=== PATIENT | female | born 1990 | race Caucasian/White ===

== ENCOUNTER 2016-07-11 16:22 | Emergency (ER) | payer BC ==
[2016-07-11 16:33] VITALS: BP 115/65
--- NOTE | 2016-07-11 17:35 | EDM.PDOC ---
ED HPI RENAL/ - General Chief Complaint: Genitourinary Problem Stated Complaint: 8 WEEKS PREG AND PAINFUL URINATION Time Seen by Provider: 07/11/16 16:45 Source of Information: Reports: Patient History Limitations: Reports: No limitations - History of Present Illness INITIAL COMMENTS - FREE TEXT/NARRATIVE: 25-year-old female presents for evaluation and treatment of urinary tract infection symptoms. Patient reports that her symptoms started today. Current symptoms include dysuria and increased urinary frequency. She took 2 Azo prior to arrival in the ER. She denies any fevers, chills, hematuria, nausea or vomiting. Patient is approximately 8 weeks . She is a . She states she has not had any pelvic cramping or any vaginal bleeding. Last menstrual period was May 14. Plans on seeing Dr. Willoughby but has not seen her as of yet. Patient is currently on amoxicillin for a sinus infection. She has been on this for the last 4 days and has 3 days left of her 7 day course. - Related Data Allergies/ADRs: Allergies Allergy/AdvReac Type Severity Reaction Status Date / Time No Known Allergies Allergy Verified 07/11/16 16:33 Home Meds: Home Meds Amoxicillin 1 dose PO BID 07/11/16 [History] Cephalexin 500 mg PO TID #21 tablet 07/11/16 [Rx] Past Medical History HEENT History: Reports: Impaired vision Cardiovascular History: Reports: None Respiratory History: Reports: None Gastrointestinal History: Reports: Inflammatory bowel disease Genitourinary History: Reports: Other (see below) Other Genitourinary History: dysuria [employer] History: Reports: Musculoskeletal History: Reports: Other (see below) Other Musculoskeletal History: knee pain, meniscus tear Neurological History: Reports: None Psychiatric History: Reports: Anxiety, Depression Endocrine/Metabolic History: Reports: None Hematologic History: Reports: None Immunologic History: Reports: None Oncologic (Cancer) History: Reports: None Dermatologic History: Reports: None - Past Surgical History Head Surgeries/Procedures: Reports: None HEENT Surgical History: Reports: Oral surgery, Tonsillectomy GI Surgical History: Reports: Colonoscopy, EGD Musculoskeletal Surgical History: Reports: Arthroscopic knee Social & Family History - Family History Family Medical History: Noncontributory - Tobacco Use Smoking Status *Q: Never Smoker Second Hand Smoke Exposure: No - Caffeine Use Caffeine Use: Reports: None - Alcohol Use Days Per Week of Alcohol Use: 1 (or less) - Recreational Drug Use Recreational Drug Use: No Drug Use in Last 12 Months: No ED ROS GENERAL - Review of Systems Review Of Systems: See Below Constitutional: Denies: fever GI/Abdominal: Denies: Abdominal pain, Nausea, Vomiting : Reports: dysuria, frequency, other (denies any vaginal bleeding or pelvic cramping). Denies: hematuria ED EXAM, RENAL/ - Physical Exam Exam: See Below Exam Limited By: No limitations General Appearance: alert, WD/WN, no apparent distress Respiratory/Chest: no respiratory distress, lungs clear, normal breath sounds Cardiovascular: normal peripheral pulses, regular rate, rhythm, no murmur GI/Abdominal: normal bowel sounds, soft, non tender Neurological: alert, oriented, normal cognition Psychiatric: normal affect, normal mood Skin Exam: Warm, Dry, Normal color Course - Vital Signs Last Recorded V/S: Last Vital Signs Temp 36.5 C 07/11/16 16:29 Pulse 82 07/11/16 16:29 Resp 18 07/11/16 16:29 BP 115/65 07/11/16 16:29 Pulse Ox 100 07/11/16 16:29 - Orders/Labs/Meds Labs: Laboratory Tests 07/11/16 Range/Units 16:45 Urine Color Light yellow (Yellow) Urine Appearance Slt cloudy H (Clear) Urine pH 7.0 (5.0-8.0) Ur Specific [place] 1.010 (1.005-1.030) Urine Protein Negative (Negative) Urine Glucose (UA) Negative (Negative) Urine Ketones Negative (Negative) Urine Occult Blood 3+ H (Negative) Urine Nitrite Negative (Negative) Urine Bilirubin Negative (Negative) Urine Urobilinogen 0.2 (0.2-1.0) Ur Leukocyte Esterase 2+ H (Negative) Urine RBC 5-10 H (0-5) /hpf Urine WBC 40-50 H (0-5) /hpf Ur Squamous Epith Cells 0-5 (0-5) /hpf Urine Bacteria Few (FEW) /hpf Urine Mucus Not seen (FEW) /hpf - Re-Assessments/Exams Free Text/Narrative Re-Assessment/Exam: 07/11/16 17:47 UA returned with 3+ blood and 2+ leukocytes. Negative for nitrates Sent for culture. I will have The patient stop the amoxicillin and start cephalexin 3 times a day. Follow up this week with [employer] If not improved. discharge instructions as documented. Departure - Departure Time of Disposition: 17:50 Disposition: Home, Self-Care 01 Condition: good Clinical Impression: UTI, Urinary tract infectious disease, Prescriptions: Cephalexin 500 mg PO TID #21 tablet Instructions: and Urinary Tract Infection Referrals: PCP,None [Primary Care Provider] - Avril Willoughby MD [Physician] - Forms: ED Department Discharge Additional Instructions: Stop the amoxicillin. cephalexin 500mg PO every 8 hours x 7 days. take with food. OTC tylenol as needed for pain. No advil, NSAIDs, aspirin, etc during . Follow-up with Dr. Willoughby this week if not improved. Please return to the ER should yous symptoms change or worsen.
== END 2016-07-11 18:05 | disposition home or self-care (01) ==
LOC: JD.ED 16:22
DX: O23.41 Unspecified infection of urinary tract in pregnancy, first trimester (principal); O99.341 Other mental disorders complicating pregnancy, first trimester; F41.9 Anxiety disorder, unspecified; F32.9 Major depressive disorder, single episode, unspecified; Z3A.08 8 weeks gestation of pregnancy; Z98.890 Other specified postprocedural states
CPT/HCPCS: 81001; 87086; 99283

== ENCOUNTER 2017-01-13 15:43 | Inpatient (IN) | payer BC ==
[2017-01-13] MEDS ORDERED: Misoprostol 100 MCG Tab VAG PRN (16:50)
[2017-01-13] MEDS ORDERED: Sodium Chloride 0.9% 10 ML Syringe FLUSH PRN (16:50)
[2017-01-13] MEDS ORDERED: Oxytocin/Lactated Ringers 10 UNIT/1,000 ML BAG IV SCH (17:00)
--- NOTE | 2017-01-13 17:17 | PCM.LDHP ---
L&D History of Present Illness - General Date of Service: 01/13/17 Admit Problem/Dx: Admission Diagnosis/Problem Admission Diagnosis/Problem Source of Information: Patient History Limitations: Reports: No Limitations - History of Present Illness Introduction:: Patient is a 26 y/o at 34 6/7 wks who had presented to clinic earlier today for regularly scheduled appointment. At that time she noted issues with less FM and NST was attempted, but no HR able to be picked up by doppler. US done and unfortunately confirmed demise. Had good FM yesterday. No other acute changes. 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: 0 LMP (Approximate): Psychiatric History: Reports: Anxiety, Depression - Past Surgical History HEENT Surgical History: Reports: Adenoidectomy, Oral Surgery, Tonsillectomy GI Surgical History: Reports: Colonoscopy, EGD Musculoskeletal Surgical History: Reports: Arthroscopic Knee Social & Family History - Family History Family Medical History: Noncontributory - Tobacco Use Smoking Status *Q: Never Smoker Second Hand Smoke Exposure: No - Caffeine Use Caffeine Use: Reports: None - Alcohol Use Alcohol Use History: No Days Per Week of Alcohol Use: 1 (or less) - Recreational Drug Use Recreational Drug Use: No Drug Use in Last 12 Months: No H&P Review of Systems - Review of Systems: Review Of Systems: See Below General: Reports: No Symptoms Pulmonary: Reports: No Symptoms Cardiovascular: Reports: No Symptoms Gastrointestinal: Reports: No Symptoms Genitourinary: Reports: No Symptoms Musculoskeletal: Reports: No Symptoms Neurological: Reports: No Symptoms L&D Exam - Exam Exam: See Below - Vital Signs Weight: 83.007 kg - OB Specific Contraction Intensity: Irritability Movement: Not Appreciated Heart Tones: Not [place] Presentation: Vertex - Rosario Score Rosario Score Cervix Position: Midposition Rosario Score Consistency: Soft Rosario Score Effacement: 51-70% Rosario Score Dilation: 1-2 cm Rosario Score 's Station: -3 Rosario Score Total: 6 - Exam General: Alert, Oriented, Cooperative Lungs: Clear to Auscultation, Normal Respiratory Effort Cardiovascular: Regular Rate, Regular Rhythm GI/Abdominal Exam: Soft, Non-Tender Genitourinary: Normal external exam Extremities: Normal Inspection Skin: Warm, Dry, Intact - Patient Data Result Diagrams: 01/13/17 17:35 - Problem List (1) 34 weeks gestation of SNOMED Code(s): 06793307 ICD Code: Z3A.34 - 34 WEEKS GESTATION OF Status: Acute Current Visit: Yes (2) IUFD (intrauterine ) SNOMED Code(s): 453031035 ICD Code: [id number] - Status: Acute Current Visit: Yes (3) Depression with anxiety SNOMED Code(s): 732703294 ICD Code: F41.8 - OTHER SPECIFIED ANXIETY DISORDERS Status: Acute Current Visit: Yes Problem List Initiated/Reviewed/Updated: Yes Orders Last 24hrs: Active Orders 24 hr Category Date Time Status Communication Order [RC] ASDIRECTED Care 01/13/17 16:50 Active Communication Order [RC] ASDIRECTED Care 01/13/17 16:50 Inactive Notify Provider [RC] ASDIRECTED Care 01/13/17 16:50 Active Peripheral IV Care [RC] . DIRECTED Care 01/13/17 16:50 Active Vaginal Exam [RC] ASDIRECTED Care 01/13/17 16:50 Active Vital Signs [RC] ASDIRECTED Care 01/13/17 16:50 Active Regular Diet [DIET] Diet 01/13/17 Dinner Active ANTICARDIOLIPIN AB PANEL IGG/M [REF] Routine Lab 01/13/17 17:15 Ordered ANTITHROMBIN III ACTIVITY [REF] Routine Lab 01/13/17 17:15 Ordered CBC W/O DIFF,HEMOGRAM [HEME] Routine Lab 01/13/17 16:52 Ordered FACTOR 5 LEIDEN MUTATION [REF] Routine Lab 01/13/17 17:15 Ordered KLEIHAUER BETKE [BBK] Routine Lab 01/13/17 17:15 Ordered LUPUS ANTICOAGULANT PANEL [REF] Routine Lab 01/13/17 17:15 Ordered PARVOVIRUS B19 IGG AND IGM [REF] Routine Lab 01/13/17 17:15 Ordered PROTHROMBIN 99129 MUTATION [REF] Routine Lab 01/13/17 17:15 Ordered TYPE AND SCREEN [BBK] Routine Lab 01/13/17 16:52 Ordered Lactated Ringers [Ringers, Lactated] 1,000 ml Med 01/13/17 17:00 Active IV ASDIRECTED Misoprostol [Cytotec] Med 01/13/17 16:50 Active 25 mcg VAG Q4H PRN Oxytocin/Lactated Ringers [Pitocin in LR 10 Units/1,000 Med 01/13/17 17:00 Active ML] 10 unit in 1,000 ml IV TITRATE Sertraline [Zoloft] Med 01/13/17 17:00 Active 50 mg PO BEDTIME Sodium Chloride 0.9% [Saline Flush] Med 01/13/17 16:50 Active 10 ml FLUSH ASDIRECTED PRN Peripheral IV Insertion Adult [OM.PC] Routine Oth 01/13/17 16:50 Ordered Medication Orders Lactated Ringer's (Ringers, Lactated) 1,000 mls @ 40 mls/hr IV ASDIRECTED LUTHER Oxytocin/Lactated Ringer's (Pitocin In Lr 10 Units/1,000 Ml) 10 unit in 1,000 mls @ 12 mls/hr IV TITRATE LUTHER; 2 MUNITS/MIN PRN Reason: Protocol Misoprostol (Cytotec) 25 mcg VAG Q4H PRN PRN Reason: cervical ripening Sertraline HCl (Zoloft) 50 mg PO BEDTIME LUTHER Sodium Chloride (Saline Flush) 10 ml FLUSH ASDIRECTED PRN PRN Reason: Keep Vein Open Assessment/Plan Comment:: 26 y/o at 34 6/7 wks gestation who presents for IOL for findings of demise of baby girl * Laboratory testing to evaluate for etiology of loss ordered, see ZEALER. Will plan placenta evaluation, Chromosome analysis of umbilical cord. Patient also interested in autopsy. [facility] * Will plan IOL with cytotec for now and pitocin when able * Pain management per patient preference * Continue home Zoloft
[2017-01-13] MEDS: Sertraline 50 MG Tab PO SCH ×2 (17:29→23:00)
[2017-01-13] MEDS: Misoprostol 25 MCG (1/4 of 100 MCG) Tab ONE (17:30)
[2017-01-13] MEDS ORDERED: Betamethasone Acetate/Betamethasone Sod Phosphate 30 MG/5 ML MDV ONE (18:22)
[2017-01-13] MEDS: Acetaminophen 325 MG Tab PO PRN (18:51)
[2017-01-13] MEDS ORDERED: Misoprostol 25 MCG (1/4 of 100 MCG) Tab ONE (20:52)
[2017-01-14] MEDS: Acetaminophen 325 MG Tab PO PRN (01:17)
[2017-01-14] MEDS: Misoprostol 25 MCG (1/4 of 100 MCG) Tab VAG PRN ×2 (01:17→06:00)
[2017-01-14] MEDS ORDERED: Nalbuphine 20 MG/1 ML Amp IVPUSH PRN (02:44)
[2017-01-14] MEDS: Lactated Ringers 1,000 ML IV SCH ×4 (06:19→11:26)
[2017-01-14] MEDS ORDERED: Ondansetron 4 MG/2 ML SDV IVPUSH PRN (06:20)
[2017-01-14] MEDS ORDERED: ePHEDrine 50 MG/ML SDV IVPUSH PRN (06:20)
[2017-01-14] MEDS ORDERED: fentaNYL 100 MCG/2 ML SDV EPIDUR PRN (06:20)
--- NOTE | 2017-01-14 06:22 | PCM.PREANE ---
Preanesthetic Assessment - Anesthesia/Transfusion/Family Hx Anesthesia History: Prior Anesthesia Without Reaction Type of Anesthesia Reaction: Excessive Nausea/Vomiting Family History of Anesthesia Reaction: No Transfusion History: No Prior Transfusion(s) Type of Transfusion Reactions: Reports: Unknown Intubation History: Unknown - Review of Systems General: No Symptoms Pulmonary: No Symptoms Cardiovascular: No Symptoms Gastrointestinal: No Symptoms (GERD) Neurological: No Symptoms, Headache Other: Reports: Depression, Anxiety - Physical Assessment NPO Status Date: 01/13/17 NPO Status Time: 20:30 Pulse: 83 O2 Sat by Pulse Oximetry: 99 Respiratory Rate: 15 Blood Pressure: 123/61 Temperature: 36.3 C Vital Signs: Last Vital Signs Temp 36.3 C 01/13/17 16:50 Pulse 83 01/13/17 16:50 Resp 15 01/13/17 16:50 BP 123/61 01/13/17 16:50 Pulse Ox Height: 1.73 m Weight: 83.007 kg ASA Class: 2 Mental Status: Alert & Oriented x3 Airway Class: Mallampati = 2 Dentition: Reports: Normal Dentition, Caries Thyro-Mental Finger Breadths: 3 Mouth Opening Finger Breadths: 3 ROM/Head Extension: Full Lungs: Clear to Auscultation, Normal Respiratory Effort Cardiovascular: Regular Rate, Regular Rhythm, No Murmurs - Lab Values: Laboratory Last Values WBC 12.39 K/mm3 (3.98-10.04) H 01/13/17 17:35 RBC 3.71 M/mm3 (3.98-5.22) L 01/13/17 17:35 Hgb 12.0 gm/L (11.2-15.7) 01/13/17 17:35 Hct 34.6 % (34.1-44.9) 01/13/17 17:35 MCV 93.3 fl (79.4-94.8) 01/13/17 17:35 MCH 32.3 pg (25.6-32.2) H 01/13/17 17:35 MCHC 34.7 g/dl (32.2-35.5) 01/13/17 17:35 RDW Std Deviation 41.5 fL (36.4-46.3) 01/13/17 17:35 Plt Count 211 K/mm3 (182-369) 01/13/17 17:35 MPV 12.5 fl (9.4-12.3) H 01/13/17 17:35 Blood Type A POSITIVE 01/13/17 17:35 Gel Antibody Screen Negative 01/13/17 17:35 Above labs reviewed and noted. - Allergies Allergies/Adverse Reactions: Allergies Allergy/AdvReac Type Severity Reaction Status Date / Time No Known Allergies Allergy Verified 07/11/16 16:33 - Anesthesia Plan Pre-Op Medication Ordered: None - Acknowledgements Anesthesia Type Planned: Epidural Pt an Appropriate Candidate for the Planned Anesthesia: Yes Alternatives and Risks of Anesthesia Discussed w Pt/Guardian: Yes Pt/Guardian Understands and Agrees with Anesthesia Plan: Yes PreAnesthesia Questionnaire HEENT History: Reports: Impaired Vision Cardiovascular History: Reports: None Respiratory History: Reports: None Gastrointestinal History: Reports: Irritable Bowel Syndrome Genitourinary History: Reports: Other (See Below) 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: Musculoskeletal History: Reports: Other (See Below) Other Musculoskeletal History: knee pain, meniscus tear Neurological History: Reports: None Psychiatric History: Reports: Anxiety, Depression Endocrine/Metabolic History: Reports: None Hematologic History: Reports: None Immunologic History: Reports: None Oncologic (Cancer) History: Reports: None Dermatologic History: Reports: None - Infectious Disease History Infectious Disease History: Reports: None - Past Surgical History HEENT Surgical History: Reports: Adenoidectomy, Oral Surgery, Tonsillectomy GI Surgical History: Reports: Colonoscopy, EGD Musculoskeletal Surgical History: Reports: Arthroscopic Knee - SUBSTANCE USE Smoking Status *Q: Never Smoker Tobacco Use Within Last Twelve Months: No Second Hand Smoke Exposure: No Days Per Week of Alcohol Use: 1 (or less) Recreational Drug Use History: No - HOME MEDS Home Medications: Home Meds Cmb#95/Iron/FA/DHA [ + Dha Combo Pack] 1 each PO DAILY [History] Sertraline [Zoloft] 50 mg PO DAILY 01/13/17 [History] - CURRENT (IN HOUSE) MEDS Current Meds: Current Medications Acetaminophen (Tylenol) 650 mg PO Q4H PRN PRN Reason: Pain Last Admin: 01/14/17 01:17 Dose: 650 mg Lactated Ringer's (Ringers, Lactated) 1,000 mls @ 40 mls/hr IV ASDIRECTED LUTHER Last Admin: 01/14/17 06:19 Dose: 40 mls/hr Oxytocin/Lactated Ringer's (Pitocin In Lr 10 Units/1,000 Ml) 10 unit in 1,000 mls @ 12 mls/hr IV TITRATE LUTHER; 2 MUNITS/MIN PRN Reason: Protocol Nalbuphine HCl (Nubain) 10 mg IVPUSH Q2H PRN PRN Reason: Pain Last Admin: 01/14/17 02:50 Dose: 10 mg Sertraline HCl (Zoloft) 50 mg PO BEDTIME LUTHER Last Admin: 01/13/17 23:00 Dose: 50 mg Sodium Chloride (Saline Flush) 10 ml FLUSH ASDIRECTED PRN PRN Reason: Keep Vein Open Discontinued Medications Betamethasone Acet/Betameth SodPhos (Celestone Soluspan 6 Mg/Ml) Confirm Administered Dose 30 mg .ROUTE .STK-MED ONE Stop: 01/13/17 18:23 Last Admin: 01/13/17 18:39 Dose: Not Given Misoprostol (Cytotec) 25 mcg VAG Q4H PRN PRN Reason: cervical ripening Last Admin: 01/13/17 17:15 Dose: 25 mcg Misoprostol (Cytotec) Confirm Administered Dose 25 mcg .ROUTE .STK-MED ONE Stop: 01/13/17 17:03 Last Admin: 01/13/17 17:30 Dose: Not Given Misoprostol (Cytotec) Confirm Administered Dose 25 mcg .ROUTE .STK-MED ONE Stop: 01/13/17 20:53 Last Admin: 01/13/17 21:11 Dose: 25 mcg Misoprostol (Cytotec) 25 mcg VAG Q4H PRN PRN Reason: cervical ripening Last Admin: 01/14/17 06:00 Dose: 25 mcg
[2017-01-14] MEDS: Bupivacaine/fentaNYL/NS 100 ML Bag EPIDUR SCH ×2 (06:38→14:36)
--- NOTE | 2017-01-14 08:08 | PCM.PNLD ---
Labor Progress Note - VS & Meds Vital Signs: Last Vital Signs Temp 36.3 C 01/14/17 06:36 Pulse 83 01/14/17 06:36 Resp 15 01/14/17 06:36 BP 123/61 01/14/17 06:36 Pulse Ox 99 01/14/17 06:36 Active Medications: Current Medications Acetaminophen (Tylenol) 650 mg PO Q4H PRN PRN Reason: Pain Last Admin: 01/14/17 01:17 Dose: 650 mg Ephedrine Sulfate (Ephedrine Sulfate) 5 mg IVPUSH ASDIRECTED PRN PRN Reason: Hypotension Fentanyl (Sublimaze) 100 mcg EPIDUR Q3H PRN PRN Reason: Pain Last Admin: 01/14/17 06:38 Dose: 100 mcg Fentanyl/Bupivacaine HCl (Fentanyl/Bupivacaine/Ns 2 Mcg-0.125% 100 Ml) 100 ml EPIDUR ASDIRECTED LUTHER Last Admin: 01/14/17 06:38 Dose: 100 ml Lactated Ringer's (Ringers, Lactated) 1,000 mls @ 40 mls/hr IV ASDIRECTED LUTHER Last Admin: 01/14/17 07:56 Dose: 40 mls/hr Oxytocin/Lactated Ringer's (Pitocin In Lr 10 Units/1,000 Ml) 10 unit in 1,000 mls @ 12 mls/hr IV TITRATE LUTHER; 2 MUNITS/MIN PRN Reason: Protocol Nalbuphine HCl (Nubain) 10 mg IVPUSH Q2H PRN PRN Reason: Pain Last Admin: 01/14/17 02:50 Dose: 10 mg Ondansetron HCl (Zofran) 4 mg IVPUSH ONETIME PRN PRN Reason: Nausea/Vomiting Sertraline HCl (Zoloft) 50 mg PO BEDTIME LUTHER Last Admin: 01/13/17 23:00 Dose: 50 mg Sodium Chloride (Saline Flush) 10 ml FLUSH ASDIRECTED PRN PRN Reason: Keep Vein Open Discontinued Medications Betamethasone Acet/Betameth SodPhos (Celestone Soluspan 6 Mg/Ml) Confirm Administered Dose 30 mg .ROUTE .STK-MED ONE Stop: 01/13/17 18:23 Last Admin: 01/13/17 18:39 Dose: Not Given Misoprostol (Cytotec) 25 mcg VAG Q4H PRN PRN Reason: cervical ripening Last Admin: 01/13/17 17:15 Dose: 25 mcg Misoprostol (Cytotec) Confirm Administered Dose 25 mcg .ROUTE .STK-MED ONE Stop: 01/13/17 17:03 Last Admin: 01/13/17 17:30 Dose: Not Given Misoprostol (Cytotec) Confirm Administered Dose 25 mcg .ROUTE .STK-MED ONE Stop: 01/13/17 20:53 Last Admin: 01/13/17 21:11 Dose: 25 mcg Misoprostol (Cytotec) 25 mcg VAG Q4H PRN PRN Reason: cervical ripening Last Admin: 01/14/17 06:00 Dose: 25 mcg - Uterine Contractions Uterine Monitoring Mode: External [place] Contraction Intensity: Moderate to Strong - Vaginal Exam Dilation (cm): 1-2 Effacement (Percent): 80 Station: -2 Cervical Position: Posterior - Labor Progress (Free Text) Labor Progress: Patient doing well. Received her 4th dose of Cytotec this AM at 0600. Just finished her epidural and now comfortable. Kirkland bulb placed to aid in induction process. No new questions at this time. Have been in contact with [facility] in regards to plans for autopsy.
--- NOTE | 2017-01-14 12:33 | PCM.PNLD ---
Labor Progress Note - VS & Meds Vital Signs: Last Vital Signs Temp 36.3 C 01/14/17 06:36 Pulse 83 01/14/17 06:36 Resp 15 01/14/17 06:36 BP 123/61 01/14/17 06:36 Pulse Ox 99 01/14/17 06:36 Active Medications: Current Medications Acetaminophen (Tylenol) 650 mg PO Q4H PRN PRN Reason: Pain Last Admin: 01/14/17 01:17 Dose: 650 mg Ephedrine Sulfate (Ephedrine Sulfate) 5 mg IVPUSH ASDIRECTED PRN PRN Reason: Hypotension Fentanyl (Sublimaze) 100 mcg EPIDUR Q3H PRN PRN Reason: Pain Last Admin: 01/14/17 06:38 Dose: 100 mcg Fentanyl/Bupivacaine HCl (Fentanyl/Bupivacaine/Ns 2 Mcg-0.125% 100 Ml) 100 ml EPIDUR ASDIRECTED LUTHER Last Admin: 01/14/17 06:38 Dose: 100 ml Lactated Ringer's (Ringers, Lactated) 1,000 mls @ 40 mls/hr IV ASDIRECTED LUTHER Last Admin: 01/14/17 11:26 Dose: 40 mls/hr Oxytocin/Lactated Ringer's (Pitocin In Lr 10 Units/1,000 Ml) 10 unit in 1,000 mls @ 12 mls/hr IV TITRATE LUTHER; 2 MUNITS/MIN PRN Reason: Protocol Nalbuphine HCl (Nubain) 10 mg IVPUSH Q2H PRN PRN Reason: Pain Last Admin: 01/14/17 02:50 Dose: 10 mg Ondansetron HCl (Zofran) 4 mg IVPUSH ONETIME PRN PRN Reason: Nausea/Vomiting Sertraline HCl (Zoloft) 0 mg PO DAILY LUTHER Sodium Chloride (Saline Flush) 10 ml FLUSH ASDIRECTED PRN PRN Reason: Keep Vein Open Discontinued Medications Betamethasone Acet/Betameth SodPhos (Celestone Soluspan 6 Mg/Ml) Confirm Administered Dose 30 mg .ROUTE .STK-MED ONE Stop: 01/13/17 18:23 Last Admin: 01/13/17 18:39 Dose: Not Given Misoprostol (Cytotec) 25 mcg VAG Q4H PRN PRN Reason: cervical ripening Last Admin: 01/13/17 17:15 Dose: 25 mcg Misoprostol (Cytotec) Confirm Administered Dose 25 mcg .ROUTE .STK-MED ONE Stop: 01/13/17 17:03 Last Admin: 01/13/17 17:30 Dose: Not Given Misoprostol (Cytotec) Confirm Administered Dose 25 mcg .ROUTE .STK-MED ONE Stop: 01/13/17 20:53 Last Admin: 01/13/17 21:11 Dose: 25 mcg Misoprostol (Cytotec) 25 mcg VAG Q4H PRN PRN Reason: cervical ripening Last Admin: 01/14/17 06:00 Dose: 25 mcg Sertraline HCl (Zoloft) 50 mg PO BEDTIME LUTHER Last Admin: 01/13/17 23:00 Dose: 50 mg - Uterine Contractions Uterine Monitoring Mode: External [place] Contraction Intensity: Moderate to Strong - Vaginal Exam Dilation (cm): 4 Effacement (Percent): 80 Station: -2 Cervical Position: Midposition - Labor Progress (Free Text) Labor Progress: Patient doing well. [place] bulb just removed. AROM performed to continue augmentation. Pitocin has not yet been started as patient is georges frequently. Will reassess in 2 hours to see if needs to be initiated at that time.
[2017-01-14] MEDS ORDERED: Oxytocin/Lactated Ringers 10 UNIT/1,000 ML BAG IV SCH (14:30)
--- NOTE | 2017-01-14 16:13 | PCM.DEL ---
L & D Note - General Info Date of Service: 01/14/17 - Delivery Note Labor: Induced by ARM Cervical Ripening Method: Balloon Device, Misoprostil Delivery Outcome: Stillbirth Delivery Method: Spontaneous Vaginal Delivery-Single Delivery Mode: Spontaneous Presentation: Left Occiput Anterior (KARLA) Nuchal Cord: None Anesthesia Type: Epidural Amniotic Fluid Description: Clear Episiotomy Type: None Laceration: None Placenta: Intact, Spontaneous Cord: 3 Vessels Estimated Blood Loss: 200 Delivery Comments (Free Text/Narrative):: Patient found to be complete and began pushing. With maternal pushing effort head delivered from an KARLA presentation. No nuchal cord present. With gentle downward traction the shoulders and body delivered. given to mother and placed on her abdomen. Cord clamped and cut. Placenta allowed time to separate and spontaneously expelled. Inspection of the perineum showed no lacerations. Section of placenta and cord then collected for chromosome analysis/microarray. Later in evening inspection of baby performed. Baby girl appears grossly normal. No cranial abnormality noted although there is a fair amount of skull edema noted at this time. Ears are not low set. Palate is intact. No dysmorphic facial features. Hands and feet normal. No defect appreciated along spine. Anus appears patent and genitalia also appear grossly normal. Weight 4lbs 11 oz Length: 18.5 inches Head circumference: 12 inches Chest circumference: 11.25 inches Heal to toe: 7 cm - Patient Data Vitals - Most Recent: Last Vital Signs Temp 36.3 C 01/14/17 06:36 Pulse 83 01/14/17 06:36 Resp 15 01/14/17 06:36 BP 123/61 01/14/17 06:36 Pulse Ox 99 01/14/17 06:36 Weight - Most Recent: 83.007 kg I&O - Last 24 Hours: Intake & Output 01/14/17 01/14/17 01/14/17 06:59 14:59 22:59 Intake Total 240 Balance 240 Lab Results Last 24 Hours: Laboratory Results - last 24 hr 01/13/17 01/13/17 Range/Units 17:35 17:35 WBC 12.39 H (3.98-10.04) K/mm3 RBC 3.71 L (3.98-5.22) M/mm3 Hgb 12.0 (11.2-15.7) gm/L Hct 34.6 (34.1-44.9) % MCV 93.3 (79.4-94.8) fl MCH 32.3 H (25.6-32.2) pg MCHC 34.7 (32.2-35.5) g/dl RDW Std Deviation 41.5 (36.4-46.3) fL Plt Count 211 (182-369) K/mm3 MPV 12.5 H (9.4-12.3) fl Blood Type A POSITIVE Gel Antibody Screen Negative Med Orders - Current: Current Medications Acetaminophen (Tylenol) 650 mg PO Q4H PRN PRN Reason: Pain Last Admin: 01/14/17 01:17 Dose: 650 mg Ephedrine Sulfate (Ephedrine Sulfate) 5 mg IVPUSH ASDIRECTED PRN PRN Reason: Hypotension Fentanyl (Sublimaze) 100 mcg EPIDUR Q3H PRN PRN Reason: Pain Last Admin: 01/14/17 06:38 Dose: 100 mcg Fentanyl/Bupivacaine HCl (Fentanyl/Bupivacaine/Ns 2 Mcg-0.125% 100 Ml) 100 ml EPIDUR ASDIRECTED LUTHER Last Admin: 01/14/17 14:36 Dose: 100 ml Lactated Ringer's (Ringers, Lactated) 1,000 mls @ 40 mls/hr IV ASDIRECTED LUTHER Last Admin: 01/14/17 11:26 Dose: 40 mls/hr Oxytocin/Lactated Ringer's (Pitocin In Lr 10 Units/1,000 Ml) 10 unit in 1,000 mls @ 12 mls/hr IV TITRATE LUTHER; 2 MUNITS/MIN PRN Reason: Protocol Oxytocin/Lactated Ringer's (Pitocin In Lr 10 Units/1,000 Ml) 10 unit in 1,000 mls @ 3,000 mls/hr IV TITRATE LUTHER PRN Reason: 500 MUNITS/MIN Last Admin: 01/14/17 15:11 Dose: 500 munits/min, 3,000 mls/hr Nalbuphine HCl (Nubain) 10 mg IVPUSH Q2H PRN PRN Reason: Pain Last Admin: 01/14/17 02:50 Dose: 10 mg Ondansetron HCl (Zofran) 4 mg IVPUSH ONETIME PRN PRN Reason: Nausea/Vomiting Sertraline HCl (Zoloft) 0 mg PO DAILY LUTHER Sodium Chloride (Saline Flush) 10 ml FLUSH ASDIRECTED PRN PRN Reason: Keep Vein Open Discontinued Medications Betamethasone Acet/Betameth SodPhos (Celestone Soluspan 6 Mg/Ml) Confirm Administered Dose 30 mg .ROUTE .STK-MED ONE Stop: 01/13/17 18:23 Last Admin: 01/13/17 18:39 Dose: Not Given Misoprostol (Cytotec) 25 mcg VAG Q4H PRN PRN Reason: cervical ripening Last Admin: 01/13/17 17:15 Dose: 25 mcg Misoprostol (Cytotec) Confirm Administered Dose 25 mcg .ROUTE .STK-MED ONE Stop: 01/13/17 17:03 Last Admin: 01/13/17 17:30 Dose: Not Given Misoprostol (Cytotec) Confirm Administered Dose 25 mcg .ROUTE .STK-MED ONE Stop: 01/13/17 20:53 Last Admin: 01/13/17 21:11 Dose: 25 mcg Misoprostol (Cytotec) 25 mcg VAG Q4H PRN PRN Reason: cervical ripening Last Admin: 01/14/17 06:00 Dose: 25 mcg Sertraline HCl (Zoloft) 50 mg PO BEDTIME LUTHER Last Admin: 01/13/17 23:00 Dose: 50 mg - Problem List & Annotations (1) 34 weeks gestation of SNOMED Code(s): 85176684 Code(s): Z3A.34 - 34 WEEKS GESTATION OF Status: Acute Current Visit: Yes (2) IUFD (intrauterine ) SNOMED Code(s): 878956937 Code(s): FEU0873 - Status: Acute Current Visit: Yes (3) Depression with anxiety SNOMED Code(s): 757679499 Code(s): F41.8 - OTHER SPECIFIED ANXIETY DISORDERS Status: Acute Current Visit: Yes (4) Vaginal delivery SNOMED Code(s): 859802449 Code(s): O80 - ENCOUNTER FOR FULL-TERM UNCOMPLICATED DELIVERY Status: Acute Current Visit: Yes - Problem List Review Problem List Initiated/Reviewed/Updated: Yes - My Orders Last 24 Hours: My Active Orders 01/13/17 16:50 Communication Order [RC] ASDIRECTED Communication Order [RC] ASDIRECTED Notify Provider [RC] ASDIRECTED Peripheral IV Care [RC] . DIRECTED Vital Signs [RC] ASDIRECTED Sodium Chloride 0.9% [Saline Flush] 10 ml FLUSH ASDIRECTED PRN Peripheral IV Insertion Adult [OM.PC] Routine 01/13/17 17:00 Lactated Ringers [Ringers, Lactated] 1,000 ml IV ASDIRECTED Oxytocin/Lactated Ringers [Pitocin in LR 10 Units/1,000 ML] 10 unit in 1,000 ml IV TITRATE 01/13/17 17:15 KLEIHAUER BETKE [BBK] Routine 01/13/17 17:35 ANTICARDIOLIPIN AB PANEL IGG/M [REF] Routine ANTITHROMBIN III ACTIVITY [REF] Routine FACTOR 5 LEIDEN MUTATION [REF] Routine LUPUS ANTICOAGULANT PANEL [REF] Routine PARVOVIRUS B19 IGG AND IGM [REF] Routine PROTHROMBIN 21335 MUTATION [REF] Routine 01/13/17 18:28 Acetaminophen [Tylenol] 650 mg PO Q4H PRN 01/13/17 19:48 Patient Status [ADT] Routine 01/13/17 Dinner Regular Diet [DIET] 01/14/17 02:44 Nalbuphine [Nubain] 10 mg IVPUSH Q2H PRN 01/14/17 14:30 Oxytocin/Lactated Ringers [Pitocin in LR 10 Units/1,000 ML] 10 unit in 1,000 ml IV TITRATE 01/15/17 09:00 Sertraline [Zoloft] 0 mg PO DAILY - Assessment Assessment:: 26 y/o G1 now P0100 PPD#0 from at 35 0/7 wks after IOL for demise - Plan Plan:: * Laboratory testing all pending * Will send of placenta and cord segment for chromosome analysis * Again reviewed option of autopsy. Patient and family making final decisions in this regard * Continue home Zoloft * Discharge tomorrow
[2017-01-14] MEDS ORDERED: Acetaminophen 325 MG Tab PO PRN (16:27)
[2017-01-14] MEDS ORDERED: Witch Hazel Medicated Pads 100/Jar TOP PRN (16:27)
[2017-01-14] MEDS ORDERED: Ibuprofen 600 MG Tab PO PRN (16:27)
[2017-01-14] MEDS ORDERED: Docusate Sodium 100 MG Cap PO PRN (16:27)
[2017-01-14] MEDS ORDERED: Zolpidem 5 MG Tab PO PRN (21:54)
[2017-01-14] MEDS ORDERED: Bupivacaine 0.25% 10 ML SDV ONE (22:22)
[2017-01-15 00:48] VITALS: BP 117/77
--- NOTE | 2017-01-15 08:09 | PCM.PNPP ---
- General Info Date of Service: 01/15/17 Functional Status: Reports: Pain Controlled, Tolerating Diet, Ambulating, Urinating - Review of Systems General: Reports: No Symptoms Pulmonary: Reports: No Symptoms Cardiovascular: Reports: No Symptoms Gastrointestinal: Reports: No Symptoms Genitourinary: Reports: No Symptoms - Patient Data Vital Signs - Most Recent: Last Vital Signs Temp 36.8 C 01/14/17 20:00 Pulse 86 01/14/17 20:00 Resp 16 01/14/17 20:00 BP 117/77 01/14/17 20:00 Pulse Ox 100 01/14/17 20:00 Weight - Most Recent: 83.007 kg Med Orders - Current: Current Medications Acetaminophen (Tylenol) 650 mg PO Q4H PRN PRN Reason: mild pain or fever Docusate Sodium (Colace) 100 mg PO BID PRN PRN Reason: Constipation Ibuprofen (Motrin) 600 mg PO Q6H PRN PRN Reason: Mild pain or fever Last Admin: 01/14/17 21:41 Dose: 600 mg Sertraline HCl (Zoloft) 0 mg PO DAILY [facility] Damari Morel (Tucks) 1 pad TOP ASDIRECTED PRN PRN Reason: Hemorrhoid pain Zolpidem Tartrate (Ambien) 5 mg PO BEDTIME PRN PRN Reason: Sleep Discontinued Medications Acetaminophen (Tylenol) 650 mg PO Q4H PRN PRN Reason: Pain Last Admin: 01/14/17 01:17 Dose: 650 mg Betamethasone Acet/Betameth SodPhos (Celestone Soluspan 6 Mg/Ml) Confirm Administered Dose 30 mg .ROUTE .STK-MED ONE Stop: 01/13/17 18:23 Last Admin: 01/13/17 18:39 Dose: Not Given Ephedrine Sulfate (Ephedrine Sulfate) 5 mg IVPUSH ASDIRECTED PRN PRN Reason: Hypotension Fentanyl (Sublimaze) 100 mcg EPIDUR Q3H PRN PRN Reason: Pain Last Admin: 01/14/17 06:38 Dose: 100 mcg Fentanyl/Bupivacaine HCl (Fentanyl/Bupivacaine/Ns 2 Mcg-0.125% 100 Ml) 100 ml EPIDUR ASDIRECTED [facility] Last Admin: 01/14/17 14:36 Dose: 100 ml Lactated Ringer's (Ringers, Lactated) 1,000 mls @ 40 mls/hr IV ASDIRECTED LUTHER Last Admin: 01/14/17 11:26 Dose: 40 mls/hr Oxytocin/Lactated Ringer's (Pitocin In Lr 10 Units/1,000 Ml) 10 unit in 1,000 mls @ 12 mls/hr IV TITRATE LUTHER; 2 MUNITS/MIN PRN Reason: Protocol Oxytocin/Lactated Ringer's (Pitocin In Lr 10 Units/1,000 Ml) 10 unit in 1,000 mls @ 3,000 mls/hr IV TITRATE LUTHER PRN Reason: 500 MUNITS/MIN Last Admin: 01/14/17 15:11 Dose: 500 munits/min, 3,000 mls/hr Misoprostol (Cytotec) 25 mcg VAG Q4H PRN PRN Reason: cervical ripening Last Admin: 01/13/17 17:15 Dose: 25 mcg Misoprostol (Cytotec) Confirm Administered Dose 25 mcg .ROUTE .STK-MED ONE Stop: 01/13/17 17:03 Last Admin: 01/13/17 17:30 Dose: Not Given Misoprostol (Cytotec) Confirm Administered Dose 25 mcg .ROUTE .STK-MED ONE Stop: 01/13/17 20:53 Last Admin: 01/13/17 21:11 Dose: 25 mcg Misoprostol (Cytotec) 25 mcg VAG Q4H PRN PRN Reason: cervical ripening Last Admin: 01/14/17 06:00 Dose: 25 mcg Nalbuphine HCl (Nubain) 10 mg IVPUSH Q2H PRN PRN Reason: Pain Last Admin: 01/14/17 02:50 Dose: 10 mg Ondansetron HCl (Zofran) 4 mg IVPUSH ONETIME PRN PRN Reason: Nausea/Vomiting Sertraline HCl (Zoloft) 50 mg PO BEDTIME LUTHER Last Admin: 01/13/17 23:00 Dose: 50 mg Sodium Chloride (Saline Flush) 10 ml FLUSH ASDIRECTED PRN PRN Reason: Keep Vein Open - Interaction Support Person: Significant Other - Recovery Exam Fundal Tone: Firm Fundal Level: 1 Fingerbreadths Below Umbilicus Fundal Placement: Midline Lochia Amount: Small Lochia Color: Rubra/Red Perineum Description: Intact, Minimal Bruising/Swelling Episiotomy/Laceration: None Bladder Status: Voiding Urinary Elimination: Voided - Exam General: Alert, Oriented, Cooperative GI/Abdominal Exam: Soft, Non-Tender Extremities: Normal Inspection Skin: Warm, Dry, Intact - Problem List & Annotations (1) 34 weeks gestation of SNOMED Code(s): 08759867 Code(s): Z3A.34 - 34 WEEKS GESTATION OF Status: Acute Current Visit: Yes (2) IUFD (intrauterine ) SNOMED Code(s): 557304331 Code(s): JIN3953 - Status: Acute Current Visit: Yes (3) Depression with anxiety SNOMED Code(s): 261028906 Code(s): F41.8 - OTHER SPECIFIED ANXIETY DISORDERS Status: Acute Current Visit: Yes (4) Vaginal delivery SNOMED Code(s): 172815503 Code(s): O80 - ENCOUNTER FOR FULL-TERM UNCOMPLICATED DELIVERY Status: Acute Current Visit: Yes - Problem List Review Problem List Initiated/Reviewed/Updated: Yes - My Orders Last 24 Hours: My Active Orders 01/14/17 16:27 Activity as Tolerated [RC] PER UNIT ROUTINE Vital Signs [RC] 20,04,12 Acetaminophen [Tylenol] 650 mg PO Q4H PRN Docusate Sodium [Colace] 100 mg PO BID PRN Ibuprofen [Motrin] 600 mg PO Q6H PRN Witch Maria Teresa [Tucks] 1 pad TOP ASDIRECTED PRN Assess Lochia [WOMSER] Per Unit Routine Assess Uterine Involution [WOMSER] Per Unit Routine Breast Pump [WOMSER] Per Unit Routine Heat Therapy [OM.PC] PRN Perineal Care [OM.PC] Per Unit Routine Peripheral IV Discontinue [OM.PC] Routine Sitz Bath [OM.PC] Per Unit Routine 01/14/17 17:42 CHROMO ANALYSIS, POC Routine 01/14/17 21:54 Zolpidem [Ambien] 5 mg PO BEDTIME PRN 01/14/17 Dinner Regular Diet [DIET] 01/15/17 08:01 Ready for Discharge [RC] PER UNIT ROUTINE 01/15/17 09:00 Sertraline [Zoloft] 0 mg PO DAILY 01/15/17 16:27 Heat Therapy [OM.PC] PRN - Assessment Assessment:: 26 y/o G1 now P0100 PPD#1 from at 35 0/7 wks after IOL for demise - Plan Plan:: * Laboratory testing all pending * Placenta pathology and chromosome analysis pending * Autopsy to be completed, paperwork completed * Continue home Zoloft * Discharge today
--- NOTE | 2017-01-15 08:09 | PCM.DCSUM1 ---
Discharge Summary - Discharge Data Discharge Date: 01/15/17 Discharge Disposition: Home, Self-Care 01 Condition: Good - Discharge Diagnosis/Problem(s) (1) 34 weeks gestation of SNOMED Code(s): 51842829 ICD Code: Z3A.34 - 34 WEEKS GESTATION OF Status: Acute Current Visit: Yes (2) IUFD (intrauterine ) SNOMED Code(s): 823755209 ICD Code: [id number] - Status: Acute Current Visit: Yes (3) Depression with anxiety SNOMED Code(s): 623476235 ICD Code: F41.8 - OTHER SPECIFIED ANXIETY DISORDERS Status: Acute Current Visit: Yes (4) Vaginal delivery SNOMED Code(s): 400627629 ICD Code: O80 - ENCOUNTER FOR FULL-TERM UNCOMPLICATED DELIVERY Status: Acute Current Visit: Yes - Patient Summary/Data Complications: None Consults: None Recommended Follow-up Testing/Procedures: Follow up in 1-2 weeks for mood check Hospital Course: 26 y/o presented at 34 6/7 wks with demise of baby girl. Induction begun with cytotec and ball bulb. Eventually AROM done. She progressed well to complete dilation and underwent an uncomplicated vaginal delivery. See note. Full evaluation for demise begun and results of this evaluation are pending. She was eventually discharged on PPD#1 - Patient Instructions Diet: Regular Diet as Tolerated Activity: As Tolerated Activity, Other: Pelvic Rest for 6 weeks Driving: May Drive Today Showering/Bathing: May Shower Showering/Bathing, Other: May Bathe Notify Provider of: Fever, Increased Pain, Swelling and Redness, Drainage, Nausea and/or Vomiting - Discharge Plan Home Medications: Home Meds Cmb#95/Iron/FA/DHA [ + Dha Combo Pack] 1 each PO DAILY [History] Sertraline [Zoloft] 50 mg PO DAILY 01/13/17 [History] Ibuprofen [IJD: Ibuprofen] 600 mg PO Q6H PRN tablet 01/15/17 [Rx] Patient Handouts: Stillbirth, Vaginal Delivery, Loss, Care After Referrals: Avril Willoughby MD [Primary Care Provider] - (1 week, mood check) - Discharge Summary/Plan Comment DC Time >30 min.: No - Patient Data Vitals - Most Recent: Last Vital Signs Temp 36.8 C 01/14/17 20:00 Pulse 86 01/14/17 20:00 Resp 16 01/14/17 20:00 BP 117/77 01/14/17 20:00 Pulse Ox 100 01/14/17 20:00 Weight - Most Recent: 83.007 kg Med Orders - Current: Current Medications Acetaminophen (Tylenol) 650 mg PO Q4H PRN PRN Reason: mild pain or fever Docusate Sodium (Colace) 100 mg PO BID PRN PRN Reason: Constipation Ibuprofen (Motrin) 600 mg PO Q6H PRN PRN Reason: Mild pain or fever Last Admin: 01/14/17 21:41 Dose: 600 mg Sertraline HCl (Zoloft) 0 mg PO DAILY [facility] Damari Morel ([place]) 1 pad TOP ASDIRECTED PRN PRN Reason: Hemorrhoid pain Zolpidem Tartrate (Ambien) 5 mg PO BEDTIME PRN PRN Reason: Sleep Discontinued Medications Acetaminophen (Tylenol) 650 mg PO Q4H PRN PRN Reason: Pain Last Admin: 01/14/17 01:17 Dose: 650 mg Betamethasone Acet/Betameth SodPhos (Celestone Soluspan 6 Mg/Ml) Confirm Administered Dose 30 mg .ROUTE .STK-MED ONE Stop: 01/13/17 18:23 Last Admin: 01/13/17 18:39 Dose: Not Given Ephedrine Sulfate (Ephedrine Sulfate) 5 mg IVPUSH ASDIRECTED PRN PRN Reason: Hypotension Fentanyl (Sublimaze) 100 mcg EPIDUR Q3H PRN PRN Reason: Pain Last Admin: 01/14/17 06:38 Dose: 100 mcg Fentanyl/Bupivacaine HCl (Fentanyl/Bupivacaine/Ns 2 Mcg-0.125% 100 Ml) 100 ml EPIDUR ASDIRECTED LUTHER Last Admin: 01/14/17 14:36 Dose: 100 ml Lactated Ringer's (Ringers, Lactated) 1,000 mls @ 40 mls/hr IV ASDIRECTED LUTHER Last Admin: 01/14/17 11:26 Dose: 40 mls/hr Oxytocin/Lactated Ringer's (Pitocin In Lr 10 Units/1,000 Ml) 10 unit in 1,000 mls @ 12 mls/hr IV TITRATE LUTHER; 2 MUNITS/MIN PRN Reason: Protocol Oxytocin/Lactated Ringer's (Pitocin In Lr 10 Units/1,000 Ml) 10 unit in 1,000 mls @ 3,000 mls/hr IV TITRATE LUTHER PRN Reason: 500 MUNITS/MIN Last Admin: 01/14/17 15:11 Dose: 500 munits/min, 3,000 mls/hr Misoprostol (Cytotec) 25 mcg VAG Q4H PRN PRN Reason: cervical ripening Last Admin: 01/13/17 17:15 Dose: 25 mcg Misoprostol (Cytotec) Confirm Administered Dose 25 mcg .ROUTE .STK-MED ONE Stop: 01/13/17 17:03 Last Admin: 01/13/17 17:30 Dose: Not Given Misoprostol (Cytotec) Confirm Administered Dose 25 mcg .ROUTE .STK-MED ONE Stop: 01/13/17 20:53 Last Admin: 01/13/17 21:11 Dose: 25 mcg Misoprostol (Cytotec) 25 mcg VAG Q4H PRN PRN Reason: cervical ripening Last Admin: 01/14/17 06:00 Dose: 25 mcg Nalbuphine HCl (Nubain) 10 mg IVPUSH Q2H PRN PRN Reason: Pain Last Admin: 01/14/17 02:50 Dose: 10 mg Ondansetron HCl (Zofran) 4 mg IVPUSH ONETIME PRN PRN Reason: Nausea/Vomiting Sertraline HCl (Zoloft) 50 mg PO BEDTIME LUTHER Last Admin: 01/13/17 23:00 Dose: 50 mg Sodium Chloride (Saline Flush) 10 ml FLUSH ASDIRECTED PRN PRN Reason: Keep Vein Open *Q Meaningful Use (DIS) - VTE *Q VTE Criteria *Q: - Stroke *Q Stroke Criteria *Q: - AMI *Q AMI Criteria *Q:
[2017-01-15] MEDS ORDERED: SERTRALINE 50 MG PO SCH (09:00)
--- NOTE | 2017-01-15 15:23 | PCM48HPAN ---
Post Anesthesia Note - EVALUATION WITHIN 48HRS OF ANESTHETIC Vital Signs in Normal Range: Yes Patient Participated in Evaluation: Yes Respiratory Function Stable: Yes Airway Patent: Yes Cardiovascular Function Stable: Yes Hydration Status Stable: Yes Pain Control Satisfactory: Yes Nausea and Vomiting Control Satisfactory: Yes Mental Status Recovered: Yes - COMMENTS/OBSERVATIONS Free Text/Narrative:: Chart reviewed. Patient discharged home with no apparent complications.
== END 2017-01-15 10:15 | disposition home or self-care (01) | DRG 560 ==
LOC: JD.OBCHECK 15:43 → JD.OB 15:47 → JD.OBCHECK 20:06 → JD.OB 20:10 → OBSVTOIN 01-14 16:13 → JD.OB 01-14 17:41
PROVIDERS: ADMIT Obstetrics & Gynecology; ATTEND Obstetrics & Gynecology
PROC: 10E0XZZ Delivery of Products of Conception, External Approach (ICD-10-PCS; principal; 2017-01-14)
PROC: 10907ZC Drainage of Amniotic Fluid, Therapeutic from Products of Conception, Via Natural or Artificial Opening (ICD-10-PCS; 2017-01-14)
PROC: 3E0P7VZ Introduction of Hormone into Female Reproductive, Via Natural or Artificial Opening (ICD-10-PCS; 2017-01-14)
PROC: 00HU33Z Insertion of Infusion Device into Spinal Canal, Percutaneous Approach (ICD-10-PCS; 2017-01-14)
PROC: 3E0R3BZ Introduction of Anesthetic Agent into Spinal Canal, Percutaneous Approach (ICD-10-PCS; 2017-01-14)
DX: O36.4XX0 Maternal care for intrauterine death, not applicable or unspecified (principal); Z3A.35 35 weeks gestation of pregnancy; Z37.1 Single stillbirth; O99.344 Other mental disorders complicating childbirth; F41.8 Other specified anxiety disorders; Z79.899 Other long term (current) drug therapy
CPT/HCPCS: 01967; 36415; 51702; 59409; 81229; 81240; 81241; 84443; 85027; 85300; 85460; 85613; 85730; 86147; 86747; 86850; 86900; 86901; 88233; A9270-GY; J2300; J2590; J3010; J7120

== ENCOUNTER 2017-01-23 09:44 | Emergency (ER) | payer BC ==
[2017-01-23 09:55] VITALS: BP 129/79
--- NOTE | 2017-01-23 10:37 | EDM.PDOC ---
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 1 Para 0. She is 9 days post-. She delivered her baby on 01/14/17. The baby was stillborn. The baby was born via vaginal delivery. She denies any vaginal tearing as a result of labor. Over the past 24 hours she's been experiencing persistent, lower pelvic pain. She describes the pain as a constant ache. She denies cramping sensation. She says her vaginal bleeding has changed from dark brown to bright red over the past 24 hours. The flow amount has remained the same. She changes her pad every 3 hours and says it's never been saturated. She denies feeling lightheaded or dizzy. She denies dysuria, frequency or burning with urination. No fever, chills or sweats. 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: Musculoskeletal History: Reports: Other (See Below) Other Musculoskeletal History: knee pain, meniscus tear Neurological History: Reports: None Psychiatric History: Reports: Anxiety, Depression Endocrine/Metabolic History: Reports: None Hematologic History: Reports: None Immunologic History: Reports: None Oncologic (Cancer) History: Reports: None Dermatologic History: Reports: None - Infectious Disease History Infectious Disease History: Reports: None - Past Surgical History Head Surgeries/Procedures: Reports: None HEENT Surgical History: Reports: Adenoidectomy, Oral Surgery, Tonsillectomy GI Surgical History: Reports: Colonoscopy, EGD Musculoskeletal Surgical History: Reports: Arthroscopic Knee Social & Family History - Family History Family Medical History: Noncontributory - Tobacco Use Smoking Status *Q: Never Smoker Second Hand Smoke Exposure: No - Caffeine Use Caffeine Use: Reports: None - Alcohol Use Days Per Week of Alcohol Use: 1 (or less) - Recreational Drug Use Recreational Drug Use: No Drug Use in Last 12 Months: No ED ROS GENERAL - Review of Systems Review Of Systems: See Below Constitutional: Reports: No Symptoms. Denies: Fever, Chills Respiratory: Reports: No Symptoms. Denies: Shortness of Breath Cardiovascular: Reports: No Symptoms. Denies: Chest Pain : Reports: Other (pelvic pain, vaginal bleeding ) ED EXAM - Physical Exam Exam: See Below Exam Limited By: No Limitations General Appearance: Alert, WD/WN, No Apparent Distress Respiratory/Chest: No Respiratory Distress, Lungs Clear, Normal Breath Sounds Cardiovascular: Regular Rate, Rhythm (Female) Exam: Other (Patient has pain to the lower, midline, pelvic region. Non-tender to palpation. I was able to palpate her uterus which is low in her pelvis. It is firm. ) Skin Exam: Warm, Dry, Intact Course - Vital Signs Last Recorded V/S: Last Vital Signs Temp 97.6 F 01/23/17 09:52 Pulse 100 01/23/17 09:52 Resp 18 01/23/17 09:52 BP 129/79 01/23/17 09:52 Pulse Ox 100 01/23/17 09:52 - Orders/Labs/Meds Labs: Laboratory Tests 01/23/17 Range/Units 10:26 WBC 9.12 (3.98-10.04) K/mm3 RBC 4.33 (3.98-5.22) M/mm3 Hgb 13.7 (11.2-15.7) gm/L Hct 40.4 (34.1-44.9) % MCV 93.3 (79.4-94.8) fl MCH 31.6 (25.6-32.2) pg MCHC 33.9 (32.2-35.5) g/dl RDW Std Deviation 41.3 (36.4-46.3) fL Plt Count 336 (182-369) K/mm3 MPV 10.6 (9.4-12.3) fl - Re-Assessments/Exams Free Text/Narrative Re-Assessment/Exam: CBC came back normal. Hemoglobin is stable at 13. This is improved from discharge from the hospital. I palpated her uterus which was normal. She had a small amount of bleeding with palpation. Her pad has a small amount of blood on it. I called and spoke to Dr Francis who is textile conservator for Dr. Willoughby. She is aware of the patient's case. We discussed her history, physical exam, and lab findings. She is comfortable with watching for now. She instructed us to educated on return precautions and have her f/u early next week for recheck. Patient was reassured. She was educated on return precautions and f/u instructions. Departure - Departure Time of Disposition: 11:11 Disposition: Home, Self-Care 01 Condition: Good Clinical Impression: bleeding Qualifiers: hemorrhage type: unspecified Qualified Code(s): O72.1 - Other immediate hemorrhage - Discharge Information Instructions: Hemorrhage Referrals: Naima Willoughby [Primary Care Provider] - Forms: ED Department Discharge Additional Instructions: Return to ER with worsening symptoms, soaking more than 1 pad per hour, worsening pain, or additional concerns Follow-up with Dr. Willoughby on Wednesday or Wednesday for recheck Tylenol or motrin as needed for pain
== END 2017-01-23 11:18 | disposition home or self-care (01) ==
LOC: JD.ED 09:44
DX: O72.1 Other immediate postpartum hemorrhage (principal); Z37.1 Single stillbirth
CPT/HCPCS: 36415; 85027; 99283; 99284

== ENCOUNTER 2017-02-11 06:40 | Day surgery (SDC) | payer OTHER, BC ==
[~2017-02-11 06:40] MED LIST: Lidocaine 1% 4 ML ONE; Lidocaine 1%/Sod Bicarbonate in NS 8.4% 1 ML Syringe PRN; Midazolam 1 MG/ML 2 ML SDV ONE; Ondansetron 4 MG/2 ML SDV ONE; Propofol 200 MG/20 ML SDV ONE; Scopolamine 1.5 MG Transdermal Patch TRDERM SCH; Sodium Chloride 0.9% 10 ML Syringe FLUSH PRN; ceFAZolin 1 GM Vial ONE; fentaNYL 250 MCG/5 ML SDV ONE
[2017-02-11] MEDS ORDERED: Bupivacaine 0.25% 10 ML SDV ONE (06:57)
[2017-02-11] MEDS ORDERED: Scopolamine 1.5 MG Transdermal Patch TOP ONE (07:00)
[2017-02-11] MEDS: Lactated Ringers 1,000 ML IV SCH ×2 (07:05→09:36)
--- NOTE | 2017-02-11 07:05 | PCM.PREANE ---
Preanesthetic Assessment - Anesthesia/Transfusion/Family Hx Anesthesia History: Prior Anesthesia Without Reaction Family History of Anesthesia Reaction: No Transfusion History: No Prior Transfusion(s) Type of Transfusion Reactions: Reports: Unknown Intubation History: Unknown - Review of Systems General: No Symptoms Pulmonary: No Symptoms Cardiovascular: No Symptoms Gastrointestinal: No Symptoms Neurological: No Symptoms Other: Reports: None - Physical Assessment NPO Status Date: 02/10/17 NPO Status Time: 00:00 Pulse: 84 O2 Sat by Pulse Oximetry: 97 Respiratory Rate: 16 Blood Pressure: 108/73 Temperature: 36.9 C Height: 1.73 m Weight: 75.296 kg ASA Class: 2 Mental Status: Alert & Oriented x3 Dentition: Reports: Normal Dentition Thyro-Mental Finger Breadths: 3 Mouth Opening Finger Breadths: 3 ROM/Head Extension: Full Lungs: Clear to Auscultation, Normal Respiratory Effort Cardiovascular: Regular Rate, Regular Rhythm, No Murmurs - Lab Values: Laboratory Last Values Urine HCG, Qual Negative (NEGATIVE) 02/11/17 06:45 - Allergies Allergies/Adverse Reactions: Allergies Allergy/AdvReac Type Severity Reaction Status Date / Time No Known Allergies Allergy Verified 02/10/17 13:50 - Blood Blood Available: No Product(s) Available: None - Anesthesia Plan Pre-Op Medication Ordered: None - Acknowledgements Anesthesia Type Planned: General Anesthesia Pt an Appropriate Candidate for the Planned Anesthesia: Yes Alternatives and Risks of Anesthesia Discussed w Pt/Guardian: Yes Pt/Guardian Understands and Agrees with Anesthesia Plan: Yes PreAnesthesia Questionnaire HEENT History: Reports: Impaired Vision Cardiovascular History: Reports: None Respiratory History: Reports: None Gastrointestinal History: Reports: Irritable Bowel Syndrome Genitourinary History: Reports: Other (See Below) Other Genitourinary History: dysuria 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: , Spontaneous Musculoskeletal History: Reports: Other (See Below) Other Musculoskeletal History: knee pain, meniscus tear Neurological History: Reports: None Psychiatric History: Reports: Anxiety, Depression Endocrine/Metabolic History: Reports: None Hematologic History: Reports: None, Other (See Below) Other Hematologic History: positive prothrombin gene Immunologic History: Reports: None Oncologic (Cancer) History: Reports: None Dermatologic History: Reports: None - Infectious Disease History Infectious Disease History: Reports: None - Past Surgical History Head Surgeries/Procedures: Reports: None HEENT Surgical History: Reports: Adenoidectomy, Oral Surgery, Tonsillectomy Cardiovascular Surgical History: Reports: None Respiratory Surgical History: Reports: None GI Surgical History: Reports: Colonoscopy, EGD Endocrine Surgical History: Reports: None Neurological Surgical History: Reports: None Musculoskeletal Surgical History: Reports: Arthroscopic Knee Dermatological Surgical History: Reports: None - SUBSTANCE USE Smoking Status *Q: Never Smoker Tobacco Use Within Last Twelve Months: No Second Hand Smoke Exposure: No Days Per Week of Alcohol Use: 1 (or less) Number of Drinks Per Day: 0 Total Drinks Per Week: 0 Recreational Drug Use History: No - HOME MEDS Home Medications: Home Meds Sertraline [Zoloft] 50 mg PO DAILY 01/13/17 [History] - CURRENT (IN HOUSE) MEDS Current Meds: Current Medications Lactated Ringer's (Ringers, Lactated) 1,000 mls @ 125 mls/hr IV ASDIRECTED LUTHER Stop: 02/11/17 23:00 Lidocaine/Sodium Bicarbonate (Buffered Lidocaine 1% In Ns 8.4%) 0.25 ml .XX ONETIME PRN PRN Reason: Prior to IV Start Stop: 02/11/17 18:00 Scopolamine (Transderm-Scop) 1.5 mg TRDERM ONETIME LUTHER Stop: 02/11/17 18:00 Sodium Chloride (Saline Flush) 10 ml FLUSH ASDIRECTED PRN PRN Reason: Keep Vein Open Stop: 02/11/17 18:00 Discontinued Medications Bupivacaine HCl (Sensorcaine-Mpf 0.25%) Confirm Administered Dose 10 ml .ROUTE .STK-MED ONE Stop: 02/11/17 06:58 Cefazolin Sodium (Ancef) Confirm Administered Dose 2 gm .ROUTE .STK-MED ONE Stop: 02/11/17 06:32 Fentanyl (Sublimaze) Confirm Administered Dose 250 mcg .ROUTE .STK-MED ONE Stop: 02/11/17 06:32 Lidocaine HCl (Xylocaine-Mpf 1%) Confirm Administered Dose 4 mls @ as directed .ROUTE .STK-MED ONE Stop: 02/11/17 06:32 Midazolam HCl (Versed 1 Mg/Ml) Confirm Administered Dose 2 mg .ROUTE .STK-MED ONE Stop: 02/11/17 06:32 Ondansetron HCl (Zofran) Confirm Administered Dose 4 mg .ROUTE .STK-MED ONE Stop: 02/11/17 06:31 Propofol (Diprivan 20 Ml) Confirm Administered Dose 200 mg .ROUTE .STK-MED ONE Stop: 02/11/17 06:32
[2017-02-11] MEDS ORDERED: EPINEPHrine 1 MG/ML 30 ML MDV ONE (07:09)
[2017-02-11] MEDS ORDERED: Dexamethasone 4 MG/ML 5 ML MDV ONE (07:37)
[2017-02-11] MEDS ORDERED: diphenhydrAMINE 50 MG/ML SDV ONE (07:37)
[2017-02-11] MEDS ORDERED: Lactated Ringers 1,000 ML ONE (07:49)
[2017-02-11] MEDS ORDERED: HYDROmorphone 1 MG/ML Syringe ONE (08:00)
[2017-02-11] MEDS ORDERED: LORazepam 2 MG/ML MDV ONE (08:28)
[2017-02-11] MEDS ORDERED: fentaNYL 100 MCG/2 ML SDV IVPUSH PRN (08:29)
[2017-02-11] MEDS ORDERED: Ketorolac 30 MG/ML SDV IVPUSH PRN (08:29)
[2017-02-11] MEDS ORDERED: HYDROmorphone 0.5 MG/0.5 ML Syringe IVPUSH PRN (08:29)
--- NOTE | 2017-02-11 08:31 | PCM.POSTAN ---
POST ANESTHESIA ASSESSMENT - MENTAL STATUS Mental Status: Alert, Oriented - VITAL SIGNS Pulse Rate: 89 SaO2: 100 Resp Rate: 8 Blood Pressure: 109/80 Temperature: 36.8 C - RESPIRATORY Respiratory Status: Respiratory Rate WNL, Airway Patent, O2 Saturation Stable, Supplemental Oxygen - CARDIOVASCULAR CV Status: Pulse Rate WNL, Blood Pressure Stable - GASTROINTESTINAL GI Status: No Symptoms - PAIN Pain Score: 2 - POST OP HYDRATION Hydration Status: Adequate & Stable - OBSERVATIONS Free Text/Narrative:: no anesthesia complications noted
[2017-02-11] MEDS ORDERED: LORazepam 2 MG/ML MDV IVPUSH ONE (09:40)
[2017-02-11 10:24] VITALS: BP 105/68
[2017-02-11] MEDS ORDERED: Acetaminophen/HYDROcodone 325-5 MG Tab PO ONE (10:45)
--- NOTE | 2017-02-15 23:30 | PCM.OPNOTE ---
- General Post-Op/Procedure Note Date of Surgery/Procedure: 02/11/17 Operative Procedure(s): right knee video arthroscopy with partial medial meniscectomy Pre Op Diagnosis: right knee medial meniscus tear Post-Op Diagnosis: Same Anesthesia Technique: General LMA, Local Primary Surgeon: [place] Anesthesia Provider: Toni Mojica Gas Regulator Repairer: Vonnie Nick in mLs: 5 Complications: None Condition: Good
--- NOTE | 2017-02-16 00:03 | OR ---
DATE OF OPERATION: 02/11/2017 SURGEON: [place] MD OPERATION PERFORMED: Right knee video arthroscopy with partial medial meniscectomy. PREOPERATIVE DIAGNOSIS: Right knee medial meniscus tear, status post failed repair. POSTOPERATIVE DIAGNOSIS: Right knee medial meniscus tear, status post failed repair. ANESTHESIA: General LMA with local. ANESTHESIA PROVIDER: Toni Mojica CRNA. SENIOR MATERIALS SCIENTIST: Vonnie Nick PA-C. ESTIMATED BLOOD LOSS: 5 mL. COMPLICATIONS: None. CONDITION: Stable. DESCRIPTION OF PROCEDURE: The patient was identified in the preop holding area. Proper site was marked and identified by the surgeon. The patient was taken back to the operating theater where after adequate anesthesia, the patient's left lower extremity was placed in a well-leg stephens. Right lower extremity had a nonsterile tourniquet applied and then it was placed in a C-clamp stephens. Foot of the bed was then lowered. The right lower extremity was then sterilely prepped and draped in the usual sterile fashion. OR time-out was performed. The patient received 2 g IV Ancef. Right lower extremity was then exsanguinated. Tourniquet was insufflated to 250 mmHg. The previous anterolateral portal incision was then utilized, and scope trocar was introduced into the joint. 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 There were no loose or foreign bodies in the mediolateral gutter. The ACL was intact in the notch. In the medial compartment, there were no signs chondromalacia changes. There was noted to be a diffuse tear at the posterior horn of the medial meniscus, unstable, both radial and horizontal tears. The previous bucket-handle tear had healed for the most part from the posterior third junction to the anterior portion, although there was a small amount of fraying noted at the anterior portion. This fraying was then debrided back in the posterior horn of the medial meniscus roughly at the posterior third. It was resected out in entirety. Rest of it was found to be stable. At this time, excess saline was irrigated through the knee, and its lateral compartment showed no signs of pathology. At this time, excess saline was drained from the knee. Local was used, and simple nylon sutures were used for closure of the skin. The patient had a sterile soft dressing applied and was sent to the PACU in stable condition. MMODAL /[id number]
== END 2017-02-11 11:15 | disposition home or self-care (01) ==
LOC: JD.SDS 06:40
PROVIDERS: ATTEND Orthopaedic Surgery
DX: M23.221 Derangement of posterior horn of medial meniscus due to old tear or injury, right knee (principal); D68.52 Prothrombin gene mutation
CPT/HCPCS: 29881; 81025; A9270; J0171; J0690; J1100; J1170; J1200; J2060; J2250; J2405; J3010; J7120; 01400; J2704

== ENCOUNTER 2017-08-18 18:16 | Emergency (ER) | payer BC ==
[2017-08-18 18:26] VITALS: BP 121/82
--- NOTE | 2017-08-18 18:41 | EDM.PDOC ---
ED HPI GENERAL MEDICAL PROBLEM - General Chief Complaint: FINANCIAL SERVICES PROFESSIONAL Problem Stated Complaint: 13WKS PG AND IS SPOTTING Time Seen by Provider: 08/18/17 18:41 Source of Information: Reports: Patient - History of Present Illness INITIAL COMMENTS - FREE TEXT/NARRATIVE: Patient is here for evaluation of bleeding during . She states that this happened just prior to arrival. She denies new abdominal pain or cramping. PatientIs 13 weeks , G2. Her current has been confirmed intrauterine by ultrasound per her report. Patient reports previous spontaneous at 35 weeks. Patient is Rh positive. 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: , Spontaneous Other OB/BYN History: Lost at 35wks Musculoskeletal History: Reports: Other (See Below) Other Musculoskeletal History: knee pain, meniscus tear Neurological History: Reports: None Psychiatric History: Reports: Anxiety, Depression Endocrine/Metabolic History: Reports: None Hematologic History: Reports: None, Other (See Below) Other Hematologic History: positive prothrombin gene Immunologic History: Reports: None Oncologic (Cancer) History: Reports: None Dermatologic History: Reports: None - Infectious Disease History Infectious Disease History: Reports: None - Past Surgical History Head Surgeries/Procedures: Reports: None HEENT Surgical History: Reports: Adenoidectomy, Oral Surgery, Tonsillectomy Cardiovascular Surgical History: Reports: None Respiratory Surgical History: Reports: None GI Surgical History: Reports: Colonoscopy, EGD Endocrine Surgical History: Reports: None Neurological Surgical History: Reports: None Musculoskeletal Surgical History: Reports: Arthroscopic Knee Dermatological Surgical History: Reports: None Social & Family History - Family History Family Medical History: Noncontributory - Caffeine Use Caffeine Use: Reports: Soda ED ROS GENERAL - Review of Systems Review Of Systems: See Below Constitutional: Reports: No Symptoms Respiratory: Reports: No Symptoms Cardiovascular: Reports: No Symptoms GI/Abdominal: Reports: Constipation (Chronic, has IBS). Denies: Abdominal Pain : Reports: Other (vaginal bleeding during ). Denies: Discharge, Dysuria Musculoskeletal: Reports: No Symptoms Skin: Reports: No Symptoms ED EXAM - Physical Exam Exam: See Below Exam Limited By: No Limitations General Appearance: Alert, WD/WN, No Apparent Distress Respiratory/Chest: No Respiratory Distress, Lungs Clear, Normal Breath Sounds Cardiovascular: Normal Peripheral Pulses, Regular Rate, Rhythm, No Murmur GI/Abdominal Exam: Normal Bowel Sounds, Soft, Non-Tender (Female) Exam: Vaginal Bleeding (small amount), Other (Cervical os is closed) Heart Tones: Present Heart Tones per Min: 158 Movement: Active Psychiatric: Normal Affect, Normal Mood Skin Exam: Warm, Dry, Intact Course - Vital Signs Last Recorded V/S: Last Vital Signs Temp 98.7 F 08/18/17 18:23 Pulse 92 08/18/17 18:23 Resp 17 08/18/17 18:23 BP 121/82 08/18/17 18:23 Pulse Ox 100 08/18/17 18:23 - Re-Assessments/Exams Free Text/Narrative Re-Assessment/Exam: Small amount blood in vaginal vault, cervical os is closed. She is having no pain or cramping. Known Rh positive. Will get US. 08/18/17 19:04 Ultrasound demonstrates single intrauterine gestation at 13 weeks 0 days. No cause for bleeding found on ultrasound. Patient is to follow-up with her OB tomorrow by telephone to discuss when clinic follow up will be indicated. She will return to the emergency room if needed. 08/18/17 21:15 Departure - Departure Time of Disposition: 21:12 Disposition: Home, Self-Care 01 Condition: Good Clinical Impression: Vaginal bleeding during - Discharge Information Instructions: Pelvic Rest Referrals: Avril Willoughby MD [Primary Care Provider] - Forms: ED Department Discharge Additional Instructions: You were evaluated in the emergency room for spotting during . Ultrasound demonstrated intrauterine at 13 weeks gestational age. There is no reason on ultrasound for this bleeding area I recommend that you take it ea, no physical or emotional exertion for the next few days. Call your OB tomorrow and discuss your visit tonight, I will send US report to her. You will follow-up with her in clinic based on her recommendations when you call. Certainly return to the emergency room if needed.
--- NOTE | 2017-08-18 20:59 | US ---
Obstetrical ultrasound: Multiple real-time images were obtained transabdominally. Comparison: No prior study for current . Dates: Current ultrasound: DAKOT[facility] 02/23/18, gestational age 13 weeks 0 days Single intrauterine gestation is seen. Amniotic fluid volume is normal. No subchorionic hemorrhage is identified. Maternal ovaries are not visualized. Measurements: [place]-rump length: 66.78 mm - 13 weeks 0 days BPD: 2.15 cm - 13 weeks 4 days Head circumference: 8.13 cm - 13 weeks 4 days Abdominal circumference: 8.6 0.23 cm - 13 weeks 0 days Femur length: 1.03 cm - 13 weeks 1 day Estimated weight: 69 g (0 lbs. 2 oz.), estimated weight at 32nd percentile for age by ultrasound Heart rate: 161 BPM Impression: 1. Single intrauterine gestation. Dates as noted above. 2. No etiology is seen for the patient's bleeding. Diagnostic code #2
== END 2017-08-18 21:27 | disposition home or self-care (01) ==
LOC: JD.ED 18:16
DX: O20.9 Hemorrhage in early pregnancy, unspecified (principal); Z3A.13 13 weeks gestation of pregnancy; Z79.899 Other long term (current) drug therapy
CPT/HCPCS: 76801; 76801-26; 99284-25

== ENCOUNTER 2019-06-01 16:16 | Emergency (ER) | payer BC ==
--- NOTE | 2019-06-01 17:40 | EDM.PDOC ---
ED HPI GENERAL MEDICAL PROBLEM - General Chief Complaint: Chest Pain Stated Complaint: CHEST PAIN/R SHOULDER PAIN Time Seen by Provider: 06/01/19 16:27 Source of Information: Reports: Patient History Limitations: Reports: No Limitations - History of Present Illness INITIAL COMMENTS - FREE TEXT/NARRATIVE: The patient presents with chest pain. This started three days ago. She has no shortness of breath. The pain radiates to her back and right upper abdomen. She has some nausea at times. She has no fever, chills, or cough. The patient did travel to the [place] earlier in the month and she returned on the . She is 1 day away from going out of quarantine. She has no dysuria or hematuria. She has no other complaints. Onset: Gradual Duration: Day(s): (3) Location: Reports: Chest, Abdomen, Back Quality: Reports: Sharp Severity: Moderate Improves with: Reports: None Worsens with: Reports: None Associated Symptoms: Reports: Chest Pain. Denies: Cough, Fever/Chills, Headaches, Nausea/Vomiting, Shortness of Breath Middle Chest Pain Score (Numeric/FACES): 5 - Related Data Allergies Allergy/AdvReac Type Severity Reaction Status Date / Time No Known Allergies Allergy Verified 06/01/19 16:28 Home Meds: Home Meds Copper [Paragard T 380-A] 1 each IY ASDIRECTED 06/01/19 [History] Hydrocodone/Acetaminophen [Hydrocodon-Acetaminophen 5-325] 1 - 2 each PO Q6HR PRN #10 tablet 06/01/19 [Rx] Past Medical History HEENT History: Reports: Impaired Vision Cardiovascular History: Reports: None Respiratory History: Reports: None Gastrointestinal History: Reports: Irritable Bowel Syndrome Genitourinary History: Reports: Other (See Below) Other Genitourinary History: dysuria 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 TECHNICIAN History: Hx of IUFD Musculoskeletal History: Reports: Other (See Below) Other Musculoskeletal History: knee pain, meniscus tear Neurological History: Reports: None Psychiatric History: Reports: Anxiety, Depression Endocrine/Metabolic History: Reports: None Hematologic History: Reports: Other (See Below) Other Hematologic History: prothrombin gene mutation Immunologic History: Reports: None Oncologic (Cancer) History: Reports: None Dermatologic History: Reports: None - Infectious Disease History Infectious Disease History: Reports: None - Past Surgical History HEENT Surgical History: Reports: Adenoidectomy, Oral Surgery, Tonsillectomy Cardiovascular Surgical History: Reports: None Respiratory Surgical History: Reports: None GI Surgical History: Reports: Colonoscopy, EGD Endocrine Surgical History: Reports: None Neurological Surgical History: Reports: None Musculoskeletal Surgical History: Reports: Arthroscopic Knee Dermatological Surgical History: Reports: None Social & Family History - Family History Family Medical History: Noncontributory - Tobacco Use Smoking Status *Q: Never Smoker - Caffeine Use Caffeine Use: Reports: Soda - Recreational Drug Use Recreational Drug Use: No ED ROS GENERAL - Review of Systems Review Of Systems: See Below Constitutional: Reports: No Symptoms HEENT: Reports: No Symptoms Respiratory: Reports: No Symptoms Cardiovascular: Reports: Chest Pain Endocrine: Reports: No Symptoms GI/Abdominal: Reports: Abdominal Pain, Nausea. Denies: Diarrhea, Vomiting : Reports: No Symptoms Musculoskeletal: Reports: No Symptoms Skin: Reports: No Symptoms ED EXAM, GENERAL - Physical Exam Exam: See Below Exam Limited By: No Limitations General Appearance: Alert, No Apparent Distress Ears: Normal External Exam Nose: Normal Inspection Head: Atraumatic, Normocephalic Neck: Normal Inspection Respiratory/Chest: No Respiratory Distress, Lungs Clear, Normal Breath Sounds Cardiovascular: Regular Rate, Rhythm, No Edema, No Murmur GI/Abdominal: Soft, No Organomegaly, No Mass, Tender (Mild pain upon palpation to the RUQ) Back Exam: Normal Inspection Extremities: Normal Inspection EKG INTERPRETATION EKG Date: 06/01/19 Time: 16:52 Rhythm: NSR Rate (Beats/Min): 88 [place]: Normal P-Wave: Present QRS: Normal ST-T: Normal QT: Normal Course - Vital Signs Last Recorded V/S: Last Vital Signs Temp 97.2 F 06/01/19 16:24 Pulse 96 06/01/19 16:24 Resp 16 06/01/19 16:24 BP 128/84 06/01/19 16:24 Pulse Ox 100 06/01/19 16:24 - Orders/Labs/Meds Orders: Active Orders 24 hr Category Date Time Status Cardiac Monitoring [RC] . DIRECTED Care 06/01/19 16:47 Active EKG Documentation Completion [RC] STAT Care 06/01/19 16:47 Active Labs: Laboratory Tests 03/26/20 03/26/20 03/26/20 Range/Units 17:01 17:01 17:01 WBC 9.92 (3.98-10.04) K/mm3 RBC 4.44 (3.98-5.22) M/mm3 Hgb 13.4 D (11.2-15.7) gm/dl Hct 40.5 (34.1-44.9) % MCV 91.2 D (79.4-94.8) fl MCH 30.2 (25.6-32.2) pg MCHC 33.1 (32.2-35.5) g/dl RDW Std Deviation 41.9 (36.4-46.3) fL Plt Count 337 D (182-369) K/mm3 MPV 11.2 (9.4-12.3) fl Neut % (Auto) 57.3 (34.0-71.1) % Lymph % (Auto) 30.6 (19.3-51.7) % [place] % (Auto) 8.6 (4.7-12.5) % Eos % (Auto) 3.0 (0.7-5.8) Baso % (Auto) 0.3 (0.1-1.2) % Neut # (Auto) 5.68 (1.56-6.13) K/mm3 Lymph # (Auto) 3.04 (1.18-3.74) K/mm3 Jerome # (Auto) 0.85 H (0.24-0.36) K/mm3 Eos # (Auto) 0.30 (0.04-0.36) K/mm3 Baso # (Auto) 0.03 (0.01-0.08) K/mm3 D-Dimer, Quantitative 0.36 (0.19-0.50) mg/L Sodium 141 (136-145) mEq/L Potassium 3.6 (3.5-5.1) mEq/L Chloride 104 (98-107) mEq/L Carbon Dioxide 24 (21-32) mEq/L Anion Gap 16.6 H (5-15) BUN 14 (7-18) mg/dL Creatinine 0.8 (0.55-1.02) mg/dL Est Cr Clr Drug Dosing 111.37 mL/min Estimated GFR (MDRD) > 60 (>60) mL/min BUN/Creatinine Ratio 17.5 (14-18) Glucose 84 (74-106) mg/dL Calcium 9.3 (8.5-10.1) mg/dL Total Bilirubin 0.8 (0.2-1.0) mg/dL AST 20 (15-37) U/L ALT 36 (14-59) U/L Alkaline Phosphatase 78 (46-116) U/L Troponin I < 0.017 (0.00-0.056) ng/mL Total Protein 7.9 (6.4-8.2) g/dl Albumin 4.0 (3.4-5.0) g/dl Globulin 3.9 gm/dL Albumin/Globulin Ratio 1.0 (1-2) Lipase 127 (73-393) U/L Meds: Medications Discontinued Medications Generic Name Dose Route Start Last Admin Trade Name Freq PRN Reason Stop Dose Admin Al Hydroxide/Mg Hydroxide 30 0 ml 06/01/19 17:58 06/01/19 18:04 ml/ Lidocaine HCl 15 ml PO 06/01/19 17:59 45 ml ONETIME ONE Administration - Re-Assessments/Exams Free Text/Narrative Re-Assessment/Exam: 06/01/19 17:44 I ordered an EKG, CXR, US of her RUQ, and labs. Her EKG shows nothing acute. Her CXR looks good. 06/01/19 17:45 Her CBC and CMP was negative. Her D-dimer was negative and her troponin is negative. I am waiting for her US report. 06/01/19 17:59 Her US shows no abnormality is identified on right upper quadrant abdominal US exam. Her pain has come back so I ordered a GI cocktail to see if that helps. 06/01/19 18:20 That did not help. It made it worse. I feel this is chest wall pain. I will discharge her home with something for pain. Departure - Departure Time of Disposition: 18:25 Disposition: Home, Self-Care 01 Condition: Good Clinical Impression: Atypical chest pain Prescriptions: Hydrocodone/Acetaminophen [Hydrocodon-Acetaminophen 5-325] 1 - 2 each PO Q6HR PRN #10 tablet PRN Reason: Pain Referrals: PCP,None [Primary Care Provider] - Faby Burrell, SECY [Nurse Practitioner] - Forms: ED Department Discharge Additional Instructions: Take tylenol or motrin for the pain. If that does not help, try the hydrocodone. Please return if you are worse. Sepsis Event Note - Evaluation Sepsis Screening Result: No Definite Risk - Focused Exam Vital Signs: Vital Signs Temp Pulse Resp BP Pulse Ox 06/01/19 16:24 97.2 F 96 16 128/84 100 Date Exam was Performed: 06/01/19 Time Exam was Performed: 18:20 - My Orders Last 24 Hours: My Active Orders 06/01/19 16:47 Cardiac Monitoring [RC] . DIRECTED EKG Documentation Completion [RC] STAT - Assessment/Plan Last 24 Hours: My Active Orders 06/01/19 16:47 Cardiac Monitoring [RC] . DIRECTED EKG Documentation Completion [RC] STAT
--- NOTE | 2019-06-01 17:48 | US ---
Limited abdominal ultrasound: Multiple real-time images were obtained of the upper right abdomen. Comparison: No prior abdominal imaging is available. Findings: Pancreas appears within normal limits. Liver also appears within normal limits. Gallbladder contains no shadowing gallstones. No gallbladder wall thickening or biliary duct dilatation is seen. Right kidney shows no hydronephrosis or mass. Right kidney has a length of 11.1 cm. Main portal vein shows normal hepatopedal flow. Impression: 1. No abnormality is identified on right upper quadrant abdominal ultrasound exam. Diagnostic code #1 Study was dictated in MDT
[2019-06-01] MEDS ORDERED: Alum Hydrox/Mag Hydrox/Simeth 30 ML, Lidocaine 2% 15 ML PO ONE ×2 (17:58)
--- NOTE | 2019-06-01 18:16 | CR ---
Chest: 2 views of the chest were obtained. Comparison: No prior chest imaging is available. Heart size and mediastinum are within normal limits. Lungs are clear. Bony structures appear within normal limits. Impression: 1. Nothing acute is appreciated on 2 view chest x-ray. Diagnostic code #1 Study was dictated in MDT
[2019-06-01 18:44] VITALS: BP 104/47; PULSE 98
== END 2019-06-01 18:38 | disposition home or self-care (01) ==
LOC: JD.ED 16:16
DX: R07.89 Other chest pain (principal)
CPT/HCPCS: 36415; 71046; 76705; 80053; 83690; 84484; 85025; 85379; 93005; 99285; A9270; 93010; 99284

== ENCOUNTER 2020-03-28 20:56 | Inpatient (IN) | payer OTHER ==
[2020-03-28] MEDS ORDERED: Lidocaine 1% 50 ML MDV INJECT ONE (21:17)
[2020-03-28] MEDS ORDERED: Ondansetron 4 MG/2 ML SDV IVPUSH PRN (21:17)
[2020-03-28] MEDS ORDERED: Calcium Carbonate 500 MG Tab.Chew PO PRN (21:17)
[2020-03-28] MEDS ORDERED: Nalbuphine 10 MG/1 ML Vial IVPUSH PRN (21:17)
[2020-03-28] MEDS ORDERED: Sodium Chloride 0.9% 10 ML Syringe FLUSH PRN (21:17)
[2020-03-28] MEDS ORDERED: Oxytocin/Lactated Ringers 10 UNIT/1,000 ML BAG IV SCH (21:30)
[2020-03-28] MEDS: Lactated Ringers 1,000 ML IV SCH ×3 (21:56→23:20)
[2020-03-28] MEDS ORDERED: ePHEDrine 50 MG/ML SDV IVPUSH PRN (22:24)
[2020-03-28] MEDS ORDERED: fentaNYL 100 MCG/2 ML SDV EPIDUR PRN (22:24)
[2020-03-28] MEDS ORDERED: diphenhydrAMINE 50 MG/ML SDV IVPUSH PRN (22:24)
[2020-03-28] MEDS ORDERED: Bupivacaine/fentaNYL/NS 100 ML Bag EPIDUR PRN (22:24)
[2020-03-28] MEDS ORDERED: fentaNYL 100 MCG/2 ML SDV ONE (22:29)
--- NOTE | 2020-03-28 22:49 | PCM.PREANE ---
Preanesthetic Assessment - Procedure Proposed Procedure: Epidural - Anesthesia/Transfusion/Family Hx Anesthesia History: Prior Anesthesia Reaction Family History of Anesthesia Reaction: No Transfusion History: No Prior Transfusion(s) Type of Transfusion Reactions: Reports: Unknown Intubation History: Unknown - Review of Systems General: Fatigue Pulmonary: No Symptoms Cardiovascular: No Symptoms Gastrointestinal: Abdominal Pain (labor) Neurological: No Symptoms Other: Reports: None - Physical Assessment ASA Class: 2 Mental Status: Alert & Oriented x3 Airway Class: Mallampati = 1 Dentition: Reports: Normal Dentition Thyro-Mental Finger Breadths: 3 Mouth Opening Finger Breadths: 3 ROM/Head Extension: Full Lungs: Clear to Auscultation, Normal Respiratory Effort Cardiovascular: Regular Rate, Regular Rhythm - Lab Values: Laboratory Last Values WBC 10.51 K/mm3 (3.98-10.04) H 03/28/20 21:36 RBC 3.54 M/mm3 (3.98-5.22) L 03/28/20 21:36 Hgb 11.0 gm/dl (11.2-15.7) L D 03/28/20 21:36 Hct 33.2 % (34.1-44.9) L 03/28/20 21:36 MCV 93.8 fl (79.4-94.8) 03/28/20 21:36 MCH 31.1 pg (25.6-32.2) 03/28/20 21:36 MCHC 33.1 g/dl (32.2-35.5) 03/28/20 21:36 RDW Std Deviation 44.6 fL (36.4-46.3) 03/28/20 21:36 Plt Count 192 K/mm3 (182-369) D 03/28/20 21:36 MPV 12.5 fl (9.4-12.3) H 03/28/20 21:36 Neut % (Auto) 68.9 % (34.0-71.1) 03/28/20 21:36 Lymph % (Auto) 18.7 % (19.3-51.7) L 03/28/20 21:36 [place] % (Auto) 9.6 % (4.7-12.5) 03/28/20 21:36 Eos % (Auto) 2.7 (0.7-5.8) 03/28/20 21:36 Baso % (Auto) 0.1 % (0.1-1.2) 03/28/20 21:36 Neut # (Auto) 7.24 K/mm3 (1.56-6.13) H 03/28/20 21:36 Lymph # (Auto) 1.97 K/mm3 (1.18-3.74) 03/28/20 21:36 [place] # (Auto) 1.01 K/mm3 (0.24-0.36) H 03/28/20 21:36 Eos # (Auto) 0.28 K/mm3 (0.04-0.36) 03/28/20 21:36 Baso # (Auto) 0.01 K/mm3 (0.01-0.08) 03/28/20 21:36 SARS-CoV-2 RNA (DRE) Negative (NEGATIVE) 03/28/20 21:35 - Allergies Allergies/Adverse Reactions: Allergies Allergy/AdvReac Type Severity Reaction Status Date / Time ibuprofen Allergy Edema Verified 03/28/20 22:35 - Anesthesia Plan Pre-Op Medication Ordered: None - Acknowledgements Anesthesia Type Planned: Epidural Pt an Appropriate Candidate for the Planned Anesthesia: Yes Alternatives and Risks of Anesthesia Discussed w Pt/Guardian: Yes Pt/Guardian Understands and Agrees with Anesthesia Plan: Yes PreAnesthesia Questionnaire HEENT History: Reports: Impaired Vision Cardiovascular History: Reports: None Respiratory History: Reports: None Gastrointestinal History: Reports: GERD, Irritable Bowel Syndrome Genitourinary History: Reports: Other (See Below) Other Genitourinary History: dysuria 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: Other OB/BYN History: Hx of IUFD Musculoskeletal History: Reports: Other (See Below) Other Musculoskeletal History: knee pain, meniscus tear Neurological History: Reports: None Psychiatric History: Reports: Anxiety, Depression Endocrine/Metabolic History: Reports: None Hematologic History: Reports: Other (See Below) Other Hematologic History: prothrombin gene mutation Immunologic History: Reports: None Oncologic (Cancer) History: Reports: None Dermatologic History: Reports: None - Infectious Disease History Infectious Disease History: Reports: None - Past Surgical History HEENT Surgical History: Reports: Adenoidectomy, Oral Surgery, Tonsillectomy Cardiovascular Surgical History: Reports: None Respiratory Surgical History: Reports: None GI Surgical History: Reports: Colonoscopy, EGD Endocrine Surgical History: Reports: None Neurological Surgical History: Reports: None Musculoskeletal Surgical History: Reports: Arthroscopic Knee Dermatological Surgical History: Reports: None - HOME MEDS Home Medications: Home Meds Cyclobenzaprine [Flexeril] 5 - 10 mg PO TID PRN 03/13/20 [History] Ondansetron [Zofran Odt] 8 mg PO Q8HR PRN 03/13/20 [History] No122/Iron/Folic Acid [ Multi Tablet] 1 each PO DAILY 03/13/20 [History] Sertraline [Zoloft] 50 mg PO DAILY 03/13/20 [History] - CURRENT (IN HOUSE) MEDS Current Meds: Current Medications Calcium Carbonate/Glycine (Tums) 1,000 mg PO Q2H PRN PRN Reason: Indigestion Diphenhydramine HCl (Benadryl) 25 mg IVPUSH Q6H PRN PRN Reason: pruritis Ephedrine Sulfate (Ephedrine Sulfate) 5 mg IVPUSH ASDIRECTED PRN PRN Reason: Hypotension Fentanyl (Sublimaze) 100 mcg EPIDUR Q3H PRN PRN Reason: Pain Last Admin: 03/28/20 22:40 Dose: 100 mcg Documented by: Fentanyl/Bupivacaine HCl (Fentanyl/Bupivacaine/Ns 2 Mcg-0.125% 100 Ml) 100 ml EPIDUR ASDIRECTED PRN PRN Reason: Pain Last Admin: 03/28/20 22:42 Dose: 100 ml Documented by: Oxytocin/Lactated Ringer's (Pitocin In Lr 10 Units/1,000 Ml) 10 unit in 1,000 mls @ 500 mls/hr IV .CONTINUOUS LUTHER Lactated Ringer's (Ringers, Lactated) 1,000 mls @ 100 mls/hr IV ASDIRECTED LUTHER Last Admin: 03/28/20 22:32 Dose: 999 mls/hr Documented by: Nalbuphine HCl (Nubain) 10 mg IVPUSH Q2H PRN PRN Reason: Pain Ondansetron HCl (Zofran) 4 mg IVPUSH Q4H PRN PRN Reason: Nausea/Vomiting Sodium Chloride (Saline Flush) 10 ml FLUSH ASDIRECTED PRN PRN Reason: Keep Vein Open Discontinued Medications Fentanyl (Sublimaze) Confirm Administered Dose 100 mcg .ROUTE .STK-MED ONE Stop: 03/28/20 22:30 Last Admin: 03/28/20 22:41 Dose: Not Given Documented by: Lidocaine HCl (Xylocaine 1%) 20 ml INJECT ONETIME ONE Stop: 03/28/20 21:18
[2020-03-29] MEDS ORDERED: Oxytocin/Lactated Ringers 10 UNIT/1,000 ML BAG IV SCH (01:15)
[2020-03-29] MEDS ORDERED: Acetaminophen 325 MG Tab PO PRN (04:36)
--- NOTE | 2020-03-29 06:50 | PCM.DEL ---
L & D Note - General Info Date of Service: 03/29/20 - Delivery Note Labor: Augmented by ARM Delivery Outcome: Livebirth Delivery Method: Spontaneous Vaginal Delivery-Single Infant Delivery Mode: Spontaneous Presentation: Right Occiput Anterior (SHADIA) Nuchal Cord: None Anesthesia Type: Epidural Amniotic Fluid Description: Clear Episiotomy Type: None Laceration: None Placenta: Intact, Spontaneous Cord: 3 Vessels Estimated Blood Loss: 100 Keymar: Bulb Syringe, Stimulated, Warmed, Welch Used, Warmer Used Delivery Comments (Free Text/Narrative):: Patient found to be complete and began pushing. With maternal pushing effort head delivered from an SHADIA presentation. No nuchal cord present. With gentle downward traction the shoulders and body delivered. placed on maternal abdomen. Cord clamped and cut. Cord blood obtained. Placenta allowed time to separate and expelled intact. Inspection of perineum with no lacerations - General Info Date of Service: 03/29/20 - Patient Data Vitals - Most Recent: Last Vital Signs Temp 36.7 C 03/28/20 21:16 Pulse 86 03/28/20 21:16 Resp 16 03/28/20 21:16 BP 114/75 03/28/20 21:16 Pulse Ox 97 03/28/20 21:16 Weight - Most Recent: 93.395 kg I&O - Last 24 Hours: Intake & Output 03/28/20 03/28/20 03/29/20 14:59 22:59 06:59 Intake Total 1999 Balance 1999 - Problem List & Annotations (1) 37 weeks gestation of SNOMED Code(s): 99705260 Code(s): Z3A.37 - 37 WEEKS GESTATION OF Status: Acute Current Visit: No (2) Vaginal delivery SNOMED Code(s): 856977569 Code(s): O80 - ENCOUNTER FOR FULL-TERM UNCOMPLICATED DELIVERY Status: Acute Current Visit: No - Problem List Review Problem List Initiated/Reviewed/Updated: Yes - My Orders Last 24 Hours: My Active Orders 03/28/20 Dinner Regular Diet [DIET] 03/28/20 21:17 Patient Status [ADT] Routine Activity as Tolerated [RC] PFP Communication Order [RC] ASDIRECTED Notify Provider [RC] PFP Notify Provider [RC] PRN Peripheral IV Care [RC] . DIRECTED Urinary Catheter Assessment [RC] ASDIRECTED Calcium Carbonate [Tums] 1,000 mg PO Q2H PRN Nalbuphine [Nubain] 10 mg IVPUSH Q2H PRN Ondansetron [Zofran] 4 mg IVPUSH Q4H PRN Sodium Chloride 0.9% [Saline Flush] 10 ml FLUSH ASDIRECTED PRN Electronic Heart Tones Ext w TOCO [WOMSER] Routine Electronic Heart Tones Internal [WOMSER] Per Unit Routine Peripheral IV Insertion Adult [OM.PC] Routine Resuscitation Status Routine 03/28/20 21:18 Pump Management, Intrathecal [RC] ASDIRECTED 03/28/20 21:30 Lactated Ringers [Ringers, Lactated] 1,000 ml IV ASDIRECTED Oxytocin/Lactated Ringers [Pitocin in LR 10 Units/1,000 ML] 10 unit in 1,000 ml IV .CONTINUOUS 03/28/20 21:36 RAPID PLASMA REAGIN,RPR [CHEM] Stat TYPE AND SCREEN [BBK] Stat 03/29/20 01:15 Oxytocin/Lactated Ringers [Pitocin in LR 10 Units/1,000 ML] 10 unit in 1,000 ml IV TITRATE 03/29/20 04:36 Acetaminophen [TylenoL] 650 mg PO Q4H PRN - Assessment Assessment:: PPD#0 - Plan Plan:: * Routine cares * Breast feeding * Discharge home in 1-2 days
--- NOTE | 2020-03-29 06:50 | PCM.LDHP ---
L&D History of Present Illness - General Date of Service: 03/29/20 Admit Problem/Dx: Patient Status Order with Admit Dx/Problem 03/28/20 21:17 Patient Status [ADT] Routine Admission Diagnosis/Problem Admission Diagnosis/Problem Active labor Source of Information: Patient History Limitations: Reports: No Limitations - History of Present Illness Introduction:: Patient is a 29 y/o at 37 1/7 wks who presented yesterday PM in labor. Found to be 5 cm on RN exam. Received epidural shortly after admission. Pain Score: 6 - Related Data Allergies/Adverse Reactions: Allergies Allergy/AdvReac Type Severity Reaction Status Date / Time ibuprofen Allergy Edema Verified 03/28/20 22:35 Home Medications: Home Meds Cyclobenzaprine [Flexeril] 5 - 10 mg PO TID PRN 03/13/20 [History] Ondansetron [Zofran Odt] 8 mg PO Q8HR PRN 03/13/20 [History] No122/Iron/Folic Acid [ Multi Tablet] 1 each PO DAILY 03/13/20 [History] Sertraline [Zoloft] 50 mg PO DAILY 03/13/20 [History] Past Medical History HEENT History: Reports: Impaired Vision Gastrointestinal History: Reports: GERD, Irritable Bowel Syndrome CAN MARKER History: Reports: , Spontaneous : 4 Para: 1 Other OB/BYN History: Hx of 35 week demise Psychiatric History: Reports: Anxiety, Depression Hematologic History: Reports: Other (See Below) Other Hematologic History: prothrombin gene mutation Dermatologic History: Reports: Eczema - Infectious Disease History Infectious Disease History: Reports: Novel Coronavirus - Past Surgical History HEENT Surgical History: Reports: Adenoidectomy, Oral Surgery, Tonsillectomy GI Surgical History: Reports: Colonoscopy, EGD Musculoskeletal Surgical History: Reports: Arthroscopic Knee Social & Family History - Family History Family Medical History: No Pertinent Family History - Tobacco Use Tobacco Use Status *Q: Never Tobacco User - Caffeine Use Caffeine Use: Reports: Soda - Alcohol Use Alcohol Use History: No - Recreational Drug Use Recreational Drug Use: No H&P Review of Systems - Review of Systems: Review Of Systems: See Below General: Reports: No Symptoms Pulmonary: Reports: No Symptoms Cardiovascular: Reports: No Symptoms Gastrointestinal: Reports: No Symptoms Genitourinary: Reports: No Symptoms Musculoskeletal: Reports: No Symptoms Skin: Reports: No Symptoms Neurological: Reports: No Symptoms L&D Exam - Exam Exam: See Below - Vital Signs Vital Signs: Last Vital Signs Temp 36.7 C 03/28/20 21:16 Pulse 86 03/28/20 21:16 Resp 16 03/28/20 21:16 BP 114/75 03/28/20 21:16 Pulse Ox 97 03/28/20 21:16 Weight: 93.395 kg - OB Specific Contraction Intensity: Moderate Movement: Active Heart Tones: Present Heart Tones per Min: 140 Heart Rate (FHR) Variability: Moderate (6-25 bmp) Presentation: Vertex - Rosario Score Rosario Score Cervix Position: Posterior Rosario Score Consistency: Soft Rosario Score Effacement: >80% Rosario Score Dilation: > 5 cm Rosario Score 's Station: -1 ,0 Rosario Score Total: 10 - Exam General: Alert, Oriented, Cooperative Lungs: Clear to Auscultation, Normal Respiratory Effort Cardiovascular: Regular Rate, Regular Rhythm GI/Abdominal Exam: Soft, Non-Tender Genitourinary: Normal external exam Extremities: Normal Inspection Skin: Warm, Dry, Intact - Patient Data Lab Results Last 24 hrs: Laboratory Results - last 24 hr 03/28/20 03/28/20 Range/Units 21:35 21:36 WBC 10.51 H (3.98-10.04) K/mm3 RBC 3.54 L (3.98-5.22) M/mm3 Hgb 11.0 L D (11.2-15.7) gm/dl Hct 33.2 L (34.1-44.9) % MCV 93.8 (79.4-94.8) fl MCH 31.1 (25.6-32.2) pg MCHC 33.1 (32.2-35.5) g/dl RDW Std Deviation 44.6 (36.4-46.3) fL Plt Count 192 D (182-369) K/mm3 MPV 12.5 H (9.4-12.3) fl Neut % (Auto) 68.9 (34.0-71.1) % Lymph % (Auto) 18.7 L (19.3-51.7) % [place] % (Auto) 9.6 (4.7-12.5) % Eos % (Auto) 2.7 (0.7-5.8) Baso % (Auto) 0.1 (0.1-1.2) % Neut # (Auto) 7.24 H (1.56-6.13) K/mm3 Lymph # (Auto) 1.97 (1.18-3.74) K/mm3 [place] # (Auto) 1.01 H (0.24-0.36) K/mm3 Eos # (Auto) 0.28 (0.04-0.36) K/mm3 Baso # (Auto) 0.01 (0.01-0.08) K/mm3 SARS-CoV-2 RNA (DRE) Negative (NEGATIVE) Result Diagrams: 03/28/20 21:36 - Problem List (1) 37 weeks gestation of SNOMED Code(s): 35069508 ICD Code: Z3A.37 - 37 WEEKS GESTATION OF Status: Acute Current Visit: No Problem List Initiated/Reviewed/Updated: Yes Orders Last 24hrs: Active Orders 24 hr Category Date Time Status Patient Status [ADT] Routine ADT 03/28/20 21:17 Active Activity as Tolerated [RC] PFP Care 03/28/20 21:17 Active Communication Order [RC] ASDIRECTED Care 03/28/20 21:17 Active Communication Order [RC] ASDIRECTED Care 03/28/20 22:25 Active Notify Provider [RC] ASDIRECTED Care 03/28/20 22:24 Active Notify Provider [RC] ASDIRECTED Care 03/28/20 22:25 Active Notify Provider [RC] PFP Care 03/28/20 21:17 Active Notify Provider [RC] PRN Care 03/28/20 21:17 Active Peripheral IV Care [RC] . DIRECTED Care 03/28/20 21:17 Active Pump Management, Intrathecal [RC] ASDIRECTED Care 03/28/20 21:18 Active Urinary Catheter Assessment [RC] ASDIRECTED Care 03/28/20 21:17 Active Regular Diet [DIET] Diet 03/28/20 Dinner Active RAPID PLASMA REAGIN,RPR [CHEM] Stat Lab 03/28/20 21:36 Received TYPE AND SCREEN [BBK] Stat Lab 03/28/20 21:36 Received Acetaminophen [TylenoL] Med 03/29/20 04:36 Active 650 mg PO Q4H PRN Bupivacaine/fentaNYL/NS [fentaNYL/Bupivacaine/NS 2 MCG- Med 03/28/20 22:24 Active 0.125% 100 ML] 100 ml EPIDUR ASDIRECTED PRN Calcium Carbonate [Tums] Med 03/28/20 21:17 Active 1,000 mg PO Q2H PRN Lactated Ringers [Ringers, Lactated] 1,000 ml Med 03/28/20 21:30 Active IV ASDIRECTED Nalbuphine [Nubain] Med 03/28/20 21:17 Active 10 mg IVPUSH Q2H PRN Ondansetron [Zofran] Med 03/28/20 21:17 Active 4 mg IVPUSH Q4H PRN Oxytocin/Lactated Ringers [Pitocin in LR 10 Units/1,000 Med 03/28/20 21:30 Active ML] 10 unit in 1,000 ml IV .CONTINUOUS Oxytocin/Lactated Ringers [Pitocin in LR 10 Units/1,000 Med 03/29/20 01:15 Active ML] 10 unit in 1,000 ml IV TITRATE Sodium Chloride 0.9% [Saline Flush] Med 03/28/20 21:17 Active 10 ml FLUSH ASDIRECTED PRN diphenhydrAMINE [Benadryl] Med 03/28/20 22:24 Active 25 mg IVPUSH Q6H PRN ePHEDrine [ePHEDrine sulfate] Med 03/28/20 22:24 Active 5 mg IVPUSH ASDIRECTED PRN fentaNYL [Sublimaze] Med 03/28/20 22:24 Active 100 mcg EPIDUR Q3H PRN Electronic Heart Tones Ext w TOCO [WOMSER] Oth 03/28/20 21:17 Ordered Routine Electronic Heart Tones Internal [WOMSER] Per Unit Oth 03/28/20 21:17 Ordered Routine Peripheral IV Insertion Adult [OM.PC] Routine Oth 03/28/20 21:17 Ordered Resuscitation Status Routine Resus Stat 03/28/20 21:17 Ordered Medication Orders Acetaminophen (Tylenol) 650 mg PO Q4H PRN PRN Reason: Pain Last Admin: 03/29/20 05:17 Dose: 650 mg Documented by: PETECHE Calcium Carbonate/Glycine (Tums) 1,000 mg PO Q2H PRN PRN Reason: Indigestion Diphenhydramine HCl (Benadryl) 25 mg IVPUSH Q6H PRN PRN Reason: pruritis Ephedrine Sulfate (Ephedrine Sulfate) 5 mg IVPUSH ASDIRECTED PRN PRN Reason: Hypotension Fentanyl (Sublimaze) 100 mcg EPIDUR Q3H PRN PRN Reason: Pain Last Admin: 03/28/20 22:40 Dose: 100 mcg Documented by: COLUMBA Fentanyl/Bupivacaine HCl (Fentanyl/Bupivacaine/Ns 2 Mcg-0.125% 100 Ml) 100 ml EPIDUR ASDIRECTED PRN PRN Reason: Pain Last Admin: 03/28/20 22:42 Dose: 100 ml Documented by: COLUMBA Oxytocin/Lactated Ringer's (Pitocin In Lr 10 Units/1,000 Ml) 10 unit in 1,000 mls @ 500 mls/hr IV .CONTINUOUS LUTHER Lactated Ringer's (Ringers, Lactated) 1,000 mls @ 100 mls/hr IV ASDIRECTED LUTHER Last Admin: 03/28/20 23:20 Dose: 100 mls/hr Documented by: Infusion: 03/28/20 23:20 Dose: 100 mls/hr Documented by: Admin: 03/28/20 22:32 Dose: 999 mls/hr Documented by: Infusion: 03/28/20 22:32 Dose: 999 mls/hr Documented by: Admin: 03/28/20 21:56 Dose: 999 mls/hr Documented by: COLUMBA Oxytocin/Lactated Ringer's (Pitocin In Lr 10 Units/1,000 Ml) 10 unit in 1,000 mls @ 12 mls/hr IV TITRATE LUTHER; Protocol Last Titration: 03/29/20 05:15 Dose: 16 munits/min, 96 mls/hr Documented by: Titration: 03/29/20 04:43 Dose: 14 munits/min, 84 mls/hr Documented by: Titration: 03/29/20 04:12 Dose: 12 munits/min, 72 mls/hr Documented by: Titration: 03/29/20 03:43 Dose: 10 munits/min, 60 mls/hr Documented by: Titration: 03/29/20 03:10 Dose: 8 munits/min, 48 mls/hr Documented by: Titration: 03/29/20 02:40 Dose: 6 munits/min, 36 mls/hr Documented by: Titration: 03/29/20 02:07 Dose: 4 munits/min, 24 mls/hr Documented by: Admin: 03/29/20 01:39 Dose: 2 munits/min, 12 mls/hr Documented by: COLUMBA Nalbuphine HCl (Nubain) 10 mg IVPUSH Q2H PRN PRN Reason: Pain Ondansetron HCl (Zofran) 4 mg IVPUSH Q4H PRN PRN Reason: Nausea/Vomiting Sodium Chloride (Saline Flush) 10 ml FLUSH ASDIRECTED PRN PRN Reason: Keep Vein Open Assessment/Plan Comment:: * Admitted yesterday PM. * GBS negative, no antibiotics * Comfortable with epidural * AROM performed * Anticipate
[2020-03-29] MEDS ORDERED: Docusate Sodium 100 MG Cap PO PRN (07:51)
[2020-03-29] MEDS ORDERED: Witch Hazel Medicated Pads 40/Jar TOP PRN (07:51)
[2020-03-29] MEDS ORDERED: Benzocaine/Menthol 20%-0.5% Spray 56 GM Canister TOP PRN (07:51)
[2020-03-29] MEDS ORDERED: Ibuprofen 600 MG Tab PO PRN (07:51)
[2020-03-29] MEDS: Acetaminophen 325 MG Tab PO PRN (09:44)
[2020-03-29] MEDS ORDERED: diphenhydrAMINE 25 MG Cap PO ONE (10:36)
--- NOTE | 2020-03-29 10:51 | PCM48HPAN ---
Post Anesthesia Note - EVALUATION WITHIN 48HRS OF ANESTHETIC Vital Signs in Normal Range: Yes Patient Participated in Evaluation: Yes Respiratory Function Stable: Yes Airway Patent: Yes Cardiovascular Function Stable: Yes Hydration Status Stable: Yes Pain Control Satisfactory: Yes Nausea and Vomiting Control Satisfactory: Yes Mental Status Recovered: Yes Vital Signs: Last Vital Signs Temp 97.5 F 03/29/20 09:42 Pulse 68 03/29/20 09:42 Resp 16 03/29/20 09:42 BP 136/76 03/29/20 09:42 Pulse Ox 99 03/29/20 09:42 - COMMENTS/OBSERVATIONS Free Text/Narrative:: no complaints.
[2020-03-29] MEDS ORDERED: Bupivacaine 0.25% 10 ML SDV ONE (11:00)
[2020-03-29] MEDS: Sertraline 50 MG Tab PO SCH (11:45)
[2020-03-29] MEDS ORDERED: diphenhydrAMINE 25 MG Cap PO PRN (20:59)
[2020-03-30] MEDS: Acetaminophen 325 MG Tab PO PRN (00:51)
--- NOTE | 2020-03-30 07:52 | PCM.PNPP ---
- General Info Date of Service: 03/30/20 Functional Status: Reports: Pain Controlled, Tolerating Diet, Ambulating, Urinating - Review of Systems General: Reports: No Symptoms Pulmonary: Reports: No Symptoms Cardiovascular: Reports: No Symptoms Gastrointestinal: Reports: No Symptoms Genitourinary: Reports: No Symptoms Musculoskeletal: Reports: No Symptoms Neurological: Reports: No Symptoms - Patient Data Vital Signs - Most Recent: Last Vital Signs Temp 36.9 C 03/30/20 03:00 Pulse 68 03/30/20 03:00 Resp 18 03/30/20 03:00 BP 113/82 03/30/20 03:00 Pulse Ox 97 03/30/20 03:00 Weight - Most Recent: 93.395 kg I&O - Last 24 Hours: Intake & Output 03/29/20 03/30/20 03/30/20 22:59 06:59 14:59 Intake Total 320 Balance 320 Lab Results - Last 24 Hours: Laboratory Results - last 24 hr 03/28/20 03/28/20 Range/Units 21:36 21:36 RPR Non-reactive (NONREACTIVE) Blood Type A POSITIVE Gel Antibody Screen Negative Med Orders - Current: Current Medications Acetaminophen (Tylenol) 650 mg PO Q4H PRN PRN Reason: mild pain or fever Last Admin: 03/30/20 00:51 Dose: 650 mg Documented by: Benzocaine/Menthol (Dermoplast Pain Relief [place]) 0 gm TOP ASDIRECTED PRN PRN Reason: Perineal Comfort Measure Last Admin: 03/29/20 09:24 Dose: 1 can Documented by: Diphenhydramine HCl (Benadryl) 25 mg PO Q6H PRN PRN Reason: Itching Last Admin: 03/29/20 21:07 Dose: 25 mg Documented by: Docusate Sodium (Colace) 100 mg PO BID PRN PRN Reason: Constipation Ibuprofen (Motrin) 600 mg PO Q6H PRN PRN Reason: Mild pain or fever Sertraline HCl (Zoloft) 50 mg PO DAILY LUTHER Last Admin: 03/29/20 11:45 Dose: 50 mg Documented by: Damari Mayfield) 1 pad TOP ASDIRECTED PRN PRN Reason: Perineal Comfort Measure Last Admin: 03/29/20 09:23 Dose: 1 jar Documented by: Discontinued Medications Acetaminophen (Tylenol) 650 mg PO Q4H PRN PRN Reason: Pain Last Admin: 03/29/20 05:17 Dose: 650 mg Documented by: Bupivacaine HCl (Sensorcaine-Mpf 0.25%) 10 ml .ROUTE .STK-MED ONE Stop: 03/29/20 11:01 Calcium Carbonate/Glycine (Tums) 1,000 mg PO Q2H PRN PRN Reason: Indigestion Diphenhydramine HCl (Benadryl) 25 mg IVPUSH Q6H PRN PRN Reason: pruritis Diphenhydramine HCl (Benadryl) 25 mg PO ONETIME ONE Stop: 03/29/20 10:37 Last Admin: 03/29/20 11:37 Dose: 25 mg Documented by: Ephedrine Sulfate (Ephedrine Sulfate) 5 mg IVPUSH ASDIRECTED PRN PRN Reason: Hypotension Fentanyl (Sublimaze) 100 mcg EPIDUR Q3H PRN PRN Reason: Pain Last Admin: 03/28/20 22:40 Dose: 100 mcg Documented by: Fentanyl (Sublimaze) Confirm Administered Dose 100 mcg .ROUTE .STK-MED ONE Stop: 03/28/20 22:30 Last Admin: 03/28/20 22:41 Dose: Not Given Documented by: Fentanyl/Bupivacaine HCl (Fentanyl/Bupivacaine/Ns 2 Mcg-0.125% 100 Ml) 100 ml EPIDUR ASDIRECTED PRN PRN Reason: Pain Last Admin: 03/28/20 22:42 Dose: 100 ml Documented by: Oxytocin/Lactated Ringer's (Pitocin In Lr 10 Units/1,000 Ml) 10 unit in 1,000 mls @ 500 mls/hr IV .CONTINUOUS LUTHER Lactated Ringer's (Ringers, Lactated) 1,000 mls @ 100 mls/hr IV ASDIRECTED LUTHER Last Admin: 03/28/20 23:20 Dose: 100 mls/hr Documented by: Oxytocin/Lactated Ringer's (Pitocin In Lr 10 Units/1,000 Ml) 10 unit in 1,000 mls @ 12 mls/hr IV TITRATE LUTHER; Protocol Last Titration: 03/29/20 06:35 Dose: 166.5 munits/min, 999 mls/hr Documented by: Lidocaine HCl (Xylocaine 1%) 20 ml INJECT ONETIME ONE Stop: 03/28/20 21:18 Last Admin: 03/29/20 08:11 Dose: Not Given Documented by: Nalbuphine HCl (Nubain) 10 mg IVPUSH Q2H PRN PRN Reason: Pain Ondansetron HCl (Zofran) 4 mg IVPUSH Q4H PRN PRN Reason: Nausea/Vomiting Sodium Chloride (Saline Flush) 10 ml FLUSH ASDIRECTED PRN PRN Reason: Keep Vein Open - Interaction Disposition, : in Room with Family Interaction: Holding Feeding: Breastfed Infant; Nursed Well Support Person: - Recovery Exam Fundal Tone: Firm Fundal Level: 1 Fingerbreadths Below Umbilicus Fundal Placement: Midline Lochia Amount: Small Lochia Color: Rubra/Red Perineum Description: Edematous Episiotomy/Laceration: None Bladder Status: Voiding - Exam General: Alert, Oriented, Cooperative GI/Abdominal Exam: Soft, Non-Tender - Problem List & Annotations (1) 37 weeks gestation of SNOMED Code(s): 05541251 Code(s): Z3A.37 - 37 WEEKS GESTATION OF Status: Acute Current Visit: No (2) Vaginal delivery SNOMED Code(s): 970499366 Code(s): O80 - ENCOUNTER FOR FULL-TERM UNCOMPLICATED DELIVERY Status: Acute Current Visit: No - Problem List Review Problem List Initiated/Reviewed/Updated: Yes - My Orders Last 24 Hours: My Active Orders 03/29/20 Breakfast Regular Diet [DIET] 03/29/20 07:51 Acetaminophen [TylenoL] 650 mg PO Q4H PRN Benzocaine/Menthol [Dermoplast Pain Relief [place]] See Dose Instructions TOP ASDIRECTED PRN Docusate Sodium [Colace] 100 mg PO BID PRN Ibuprofen [Motrin] 600 mg PO Q6H PRN witch Sy [Tucks] 1 pad TOP ASDIRECTED PRN Heat Therapy [OM.PC] PRN 03/29/20 07:51 Activity as Tolerated [RC] PER UNIT ROUTINE Vital Signs [RC] 03,09,15,21 Assess Lochia [WOMSER] Per Unit Routine Assess Uterine Involution [WOMSER] Per Unit Routine Breast Pump [WOMSER] Per Unit Routine Perineal Care [OM.PC] Per Unit Routine Peripheral IV Discontinue [OM.PC] Routine Sitz Bath [OM.PC] Per Unit Routine 03/29/20 12:00 Sertraline [Zoloft] 50 mg PO DAILY 03/29/20 20:59 diphenhydrAMINE [Benadryl] 25 mg PO Q6H PRN 03/30/20 07:51 Heat Therapy [OM.PC] PRN 03/30/20 07:52 Ready for Discharge [RC] PER UNIT ROUTINE - Assessment Assessment:: PPD#1 - Plan Plan:: * Routine cares * Breast feeding * Discharge home today
--- NOTE | 2020-03-30 07:52 | PCM.DCSUM1 ---
Discharge Summary - Discharge Data Discharge Date: 03/30/20 Discharge Disposition: Home, Self-Care 01 Condition: Good - Referral to Home Health Primary Care Physician: Avril Willoughby MD - Discharge Diagnosis/Problem(s) (1) 37 weeks gestation of SNOMED Code(s): 00439094 ICD Code: Z3A.37 - 37 WEEKS GESTATION OF Status: Acute Current Visit: No (2) Vaginal delivery SNOMED Code(s): 932198566 ICD Code: O80 - ENCOUNTER FOR FULL-TERM UNCOMPLICATED DELIVERY Status: Acute Current Visit: No - Patient Summary/Data Complications: None Consults: None Hospital Course: Patient is a 29 y/o at 37 1/7 wks who presented in early labor. Progressed well and underwent an uncomplicated . See delivery note. did well and was discharged home on PPD#1 - Patient Instructions Diet: Regular Diet as Tolerated Activity: As Tolerated Activity, Other: Pelvic Rest for 6 weeks Driving: May Drive Today Showering/Bathing: May Shower Showering/Bathing, Other: May Bathe Notify Provider of: Fever, Increased Pain, Swelling and Redness, Drainage, Nausea and/or Vomiting - Discharge Plan *PRESCRIPTION DRUG MONITORING PROGRAM REVIEWED*: No *COPY OF PRESCRIPTION DRUG MONITORING REPORT IN PATIENT ULYSSES: No Home Medications: Home Meds No122/Iron/Folic Acid [ Multi Tablet] 1 each PO DAILY 03/13/20 [History] Sertraline [Zoloft] 50 mg PO DAILY 03/13/20 [History] Docusate Sodium [Colace] 100 mg PO BID PRN cap 03/30/20 [Rx] Ibuprofen [Motrin] 600 mg PO Q6H PRN tablet 03/30/20 [Rx] Referrals: Avril Willoughby MD [Primary Care Provider] - (2-3 weeks for check 6 weeks for IUD ) - Discharge Summary/Plan Comment DC Time >30 min.: No - Patient Data Vitals - Most Recent: Last Vital Signs Temp 36.9 C 03/30/20 03:00 Pulse 68 03/30/20 03:00 Resp 18 03/30/20 03:00 BP 113/82 03/30/20 03:00 Pulse Ox 97 03/30/20 03:00 Weight - Most Recent: 93.395 kg I&O - Last 24 hours: Intake & Output 03/29/20 03/30/20 03/30/20 22:59 06:59 14:59 Intake Total 320 Balance 320 Lab Results - Last 24 hrs: Laboratory Results - last 24 hr 03/28/20 03/28/20 Range/Units 21:36 21:36 RPR Non-reactive (NONREACTIVE) Blood Type A POSITIVE Gel Antibody Screen Negative Med Orders - Current: Current Medications Acetaminophen (Tylenol) 650 mg PO Q4H PRN PRN Reason: mild pain or fever Last Admin: 03/30/20 00:51 Dose: 650 mg Documented by: Benzocaine/Menthol (Dermoplast Pain Relief Hasty) 0 gm TOP ASDIRECTED PRN PRN Reason: Perineal Comfort Measure Last Admin: 03/29/20 09:24 Dose: 1 can Documented by: Diphenhydramine HCl (Benadryl) 25 mg PO Q6H PRN PRN Reason: Itching Last Admin: 03/29/20 21:07 Dose: 25 mg Documented by: Docusate Sodium (Colace) 100 mg PO BID PRN PRN Reason: Constipation Ibuprofen (Motrin) 600 mg PO Q6H PRN PRN Reason: Mild pain or fever Sertraline HCl (Zoloft) 50 mg PO DAILY LUTHER Last Admin: 03/29/20 11:45 Dose: 50 mg Documented by: Damari Morel (Paige) 1 pad TOP ASDIRECTED PRN PRN Reason: Perineal Comfort Measure Last Admin: 03/29/20 09:23 Dose: 1 jar Documented by: Discontinued Medications Acetaminophen (Tylenol) 650 mg PO Q4H PRN PRN Reason: Pain Last Admin: 03/29/20 05:17 Dose: 650 mg Documented by: Bupivacaine HCl (Sensorcaine-Mpf 0.25%) 10 ml .ROUTE .STK-MED ONE Stop: 03/29/20 11:01 Calcium Carbonate/Glycine (Tums) 1,000 mg PO Q2H PRN PRN Reason: Indigestion Diphenhydramine HCl (Benadryl) 25 mg IVPUSH Q6H PRN PRN Reason: pruritis Diphenhydramine HCl (Benadryl) 25 mg PO ONETIME ONE Stop: 03/29/20 10:37 Last Admin: 03/29/20 11:37 Dose: 25 mg Documented by: Ephedrine Sulfate (Ephedrine Sulfate) 5 mg IVPUSH ASDIRECTED PRN PRN Reason: Hypotension Fentanyl (Sublimaze) 100 mcg EPIDUR Q3H PRN PRN Reason: Pain Last Admin: 03/28/20 22:40 Dose: 100 mcg Documented by: Fentanyl (Sublimaze) Confirm Administered Dose 100 mcg .ROUTE .STK-MED ONE Stop: 03/28/20 22:30 Last Admin: 03/28/20 22:41 Dose: Not Given Documented by: Fentanyl/Bupivacaine HCl (Fentanyl/Bupivacaine/Ns 2 Mcg-0.125% 100 Ml) 100 ml EPIDUR ASDIRECTED PRN PRN Reason: Pain Last Admin: 03/28/20 22:42 Dose: 100 ml Documented by: Oxytocin/Lactated Ringer's (Pitocin In Lr 10 Units/1,000 Ml) 10 unit in 1,000 mls @ 500 mls/hr IV .CONTINUOUS LUTHER Lactated Ringer's (Ringers, Lactated) 1,000 mls @ 100 mls/hr IV ASDIRECTED LUTHER Last Admin: 03/28/20 23:20 Dose: 100 mls/hr Documented by: Oxytocin/Lactated Ringer's (Pitocin In Lr 10 Units/1,000 Ml) 10 unit in 1,000 mls @ 12 mls/hr IV TITRATE LUTHER; Protocol Last Titration: 03/29/20 06:35 Dose: 166.5 munits/min, 999 mls/hr Documented by: Lidocaine HCl (Xylocaine 1%) 20 ml INJECT ONETIME ONE Stop: 03/28/20 21:18 Last Admin: 03/29/20 08:11 Dose: Not Given Documented by: Nalbuphine HCl (Nubain) 10 mg IVPUSH Q2H PRN PRN Reason: Pain Ondansetron HCl (Zofran) 4 mg IVPUSH Q4H PRN PRN Reason: Nausea/Vomiting Sodium Chloride (Saline Flush) 10 ml FLUSH ASDIRECTED PRN PRN Reason: Keep Vein Open
[2020-03-30] MEDS: Sertraline 50 MG Tab PO SCH (08:30)
[2020-03-30 09:37] VITALS: BP 106/69; PULSE 86
== END 2020-03-30 09:08 | disposition home or self-care (01) | DRG 807 ==
LOC: JD.OBCHECK 20:56 → JD.OB 21:17 → OBSVTOIN 03-29 06:34 → JD.OB 03-29 06:35
PROVIDERS: ADMIT Obstetrics & Gynecology; ATTEND Obstetrics & Gynecology
PROC: 10E0XZZ Delivery of Products of Conception, External Approach (ICD-10-PCS; principal; 2020-03-29)
PROC: 10907ZC Drainage of Amniotic Fluid, Therapeutic from Products of Conception, Via Natural or Artificial Opening (ICD-10-PCS; 2020-03-29)
PROC: 3E0R3BZ Introduction of Anesthetic Agent into Spinal Canal, Percutaneous Approach (ICD-10-PCS; 2020-03-29)
PROC: 00HU33Z Insertion of Infusion Device into Spinal Canal, Percutaneous Approach (ICD-10-PCS; 2020-03-29)
DX: O80 Encounter for full-term uncomplicated delivery (principal); Z37.0 Single live birth; Z3A.37 37 weeks gestation of pregnancy; Z20.822 Contact with and (suspected) exposure to COVID-19
CPT/HCPCS: 01967; 36415; 51702; 59025; 59409; 85025; 86592; 86850; 86900; 86901; A9270-GY; J2590; J3010; J3490; J7120; U0002

== ENCOUNTER 2021-03-25 16:15 | Emergency (ER) | payer OTHER ==
[2021-03-25 16:38] VITALS: BP 112/75; PULSE 97
[2021-03-25] MEDS: Sodium Chloride 0.9% 10 ML Syringe FLUSH PRN ×2 (17:05→20:02)
[2021-03-25] MEDS ORDERED: Iopamidol 755 Mg/ML 100 ML Bottle IVPUSH ONE (19:59)
[2021-03-25] MEDS ORDERED: Sodium Chloride 0.9% 100 ML IV SCH (20:00)
== END 2021-03-25 21:42 | disposition home or self-care (01) ==
LOC: JD.ED 16:15
DX: R53.1 Weakness (principal); Z88.6 Allergy status to analgesic agent; Z86.16 Personal history of COVID-19
CPT/HCPCS: 36415; 70450; 70496; 70498; 71046; 80053; 85025; 85379; 85610; 85730; 93005; 99284; Q9967